=== PATIENT | female | born 1970 | race Caucasian/White ===

== ENCOUNTER → 2023-11-04 09:56 | Outpatient (AMB) | payer OTHER, SELFPAY ==
[2023-11-04 10:06] VITALS: BP 118/74; PULSE 77; O2SAT 99; BMI 34.2
--- NOTE | 2023-11-04 10:06 | A.OFFPC_ITS ---
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 Intake Note: Pt is here to est care Allergies carbamazepine [From TEGRETOL] Allergy (Unknown, Unverified 11/04/23 10:25) RASH tetracycline [TETRACYCLINE] Allergy (Unknown, Unverified 11/04/23 10:25) HAIR LOSS Medication List - Last Reconciled 11/04/23 by AJ Bose lamotrigine 400 mg PO DAILY zonisamide 100 mg PO DAILY Tobacco use date assessed: 11/04/23 Dental Screening Dental Screen Date: 11/04/23 Did you have a dental visit in the last 12 months?: No Did you have a dental problem in the last 6 months where you did not have access to dental care?: No Was dental information given to patient?: No HPI HPI Comments History of Present Illness Details Patient is a 53-year-old female here to establish care. She moved up to [place] from [place]. She has a past medical history significant for epilepsy, her last seizure was in 2021. She needs a neurologist, will refer. S he is due for mammogram and colonoscopy, will refer. She needs a refill on her seizure medication. Patient also states she would like to see a therapist, as her mother a couple months ago and she is still experiencing grief. Denies SI HI. Will connect patient with in office community mental health liaison to assist with finding therapist. She does not want the flu or COVID booster this year. 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 1. Little interest or pleasure in doing things: several days 2. Feeling down, depressed, or hopeless: more than half the days 3. Trouble falling or staying asleep, or sleeping too much: more than half the days 4. Feeling tired or having little energy: more than half the days 5. Poor appetite or overeating: several days 6. Feeling bad about yourself - or that you are a failure or have let yourself or your family down: more than half the days 7. Trouble concentrating on things, such as reading the newspaper or watching television: several days 8. Moving or speaking so slowly that other people could have noticed. Or the opposite - being so fidgety or restless that you have been moving around a lot more than usual: not at all 9. Thoughts that you would be better off or of hurting yourself in some way: not at all Total score: 11 Depression Screening Interpretation: Positive Depression Screening Done: Yes 06282 - PHQ-9 Billing: Yes Source: Developed by Drs. Conor Miranda, Deepti Phillip, Arnold Baugh and colleagues, with an educational samreen from [employer]. Thrive Questionnaire Date Thrive assessed: 11/04/23 I am a: Patient What is your living situation today?: I have a steady place to live Within the past 12 months, did the food you bought not last and you didn't have the money to get more?: Never true Within the past 12 months, did you worry whether your food would run out before you got money to buy more?: Never true Do you have trouble paying for medicines?: Yes Do you have trouble getting transportation to medical appointments?: No Do you have trouble paying your heating and electricity bill?: No Do you have trouble taking care of your child, family member or friend?: No Do you have trouble with day-to-day activities such as bathing, preparing meals, shopping, managing finances, etc.?: Yes Are you currently unemployed and looking for a job?: No Are you interested in more education?: Yes THRIVE Score: 0 AUDIT C Alcohol Use Questionnaire (AUDIT-C) 1. How often do you have a drink containing alcohol?: 2-4 times a month 2. How many drinks containing alcohol do you have on a typical day when you are drinking?: 1 or 2 3. How often do you have six or more drinks on one occasion?: Never Total Score: 2 PAIGE-7 AMB Questionnaire PAIGE-7 Date PAIGE - 7 assessed: 11/04/23 Feeling nervous, anxious, or on edge: 2 = More than half the days Not being able to stop or control worryin = More than half the days Worrying too much about different things: 2 = More than half the days Trouble relaxin = More than half the days Being so restless that it is hard to sit still: 2 = More than half the days Becoming easily annoyed or irritable: 1 = Several days Feeling afraid as if something awful might happen: 1 = Several days Total PAIGE-7 score (0-4 normal; 5-9 mild; 10-14 moderate; 15-21 severe): 12 Source: Developed by Drs. Conor Miranda, Deepti Phillip, Arnold Baugh and colleagues, with an educational samreen from [employer]. PAIGE-7 Assessment Billing PAIGE-7 Assessment Tool: PAIGE-7 Assessment 95777 Review of Systems Const Details: Constitutional : No Weight loss, No Fever, No Chills, No Fatigue, No Malaise Eyes: No Eye Pain, No Swelling, No Redness Cardiovascular : No Chest Pain, No SOB, No Dyspnea on Exertion, No Orthopnea, No Edema, No Palpitations Respiratory : No Cough, No Sputum, No Wheezing Gastrointestinal : No Nausea, No Vomiting, No Diarrhea, No Constipation, No abdominal Pain, No Hematochezia, No Melena Genitourinary : No Dysuria, No Urinary Frequency, No Hematuria, Musculoskeletal : No joint pain, No Myalgias, No Joint Swelling Skin : No Skin Lesions, No rash Neuro : No Weakness, No Numbness, No Dizziness, No Headache Psych : Admits Anxiety/Panic, Admits Depression. Denies SI/HI. Heme/Lymph: No Bruising, No Bleeding,No Lymphadenopathy Endocrine : No Polyuria, No Polydipsia All other systems reviewed and are negative Physical exam (Primary Care) Vital Signs: Last Vital Signs Pulse 77 11/04/23 10:06 BP 118/74 11/04/23 10:06 Pulse Ox 99 11/04/23 10:06 Oxygen Delivery Method Room Air 11/04/23 10:06 Care Plan Goal for BP management: Vital signs reviewed stable. BMI result Body Mass Index 34.2 Tobacco/Smoking Status: Tobacco use Status Tobacco use date assessed 11/04/23 11/04/23 10:14 Patient Tobacco Use Status Former Tobacco user 11/04/23 10:14 e-Cigarette/Vaping Use Never Used 11/04/23 10:14 PHQ-9: PHQ-9 Score PHQ-9: Total score 11 11/04/23 11:26 Depression Screening Interpretation: Positive Thrive Assessment: Date of Thrive Assessment Date Thrive assessed 11/04/23 11/04/23 10:26 Const Other: Appearance: Alert.? Oriented X3.? No acute distress.? Eyes: Pupils equal, round and reactive to light.? Neck: Normal inspection.? Neck supple.?Full ROM CVS: Normal heart rate and rhythm.? Pulses normal.? Respiratory: No respiratory distress.? Breath sounds normal.? Skin: Skin warm and dry.? Normal skin color.? Normal skin turgor.? Extremities: + left shoulder crepitus with active ROM. Neuro: Oriented X 3.? No motor deficit.? No sensory deficit. CN 2-12 intact Results Reviewed Results Reviewed: Will call patient with lab results Assessment and Plan Assessment & Plan (1) Epilepsy: Comment: Patient will get referral to neurologist. Patient will get refill of medication. Confirmed dose with pharmacy. Code(s): G40.909 - Epilepsy, unspecified, not intractable, without status epilepticus Qualifiers: Epilepsy type: unspecified Intractability: not intractable Status epilepticus: without status epilepticus Qualified Code(s): G40.909 - Epilepsy, unspecified, not intractable, without status epilepticus (2) Depression with anxiety: Comment: Patient is meeting today with in office mental health liaison, to connect patient with a therapist. 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 States that she sometimes gets discomfort in her left shoulder. Physical exam demonstrated some crepitus on full range of motion exercises. Will obtain X-ray. Code(s): M25.512 - Pain in left shoulder Qualifiers: Chronicity: unspecified Qualified Code(s): M25.512 - Pain in left shoulder Plan: Take your medications as prescribed. If you were prescribed antibiotics today, it is important that you take your medication to their entirety, do not skip any doses, do not finish them early. Follow-up with your primary care provider this week. Return to the emergency department with new or worsening symptoms. Such as fevers, chills, chest pain, shortness of breath, nausea, vomiting, dizziness, headache, vision changes, lethargy In case of emergency call 911 Plan Patient will follow-up for full physical exam in 3-4 months. Patient declined OBGYN referral at this time Orders: Orders Complete Blood Count Auto Diff Today Z13.0 - Encounter for screening for diseases of the blood and blood-forming organs and certain disorders involving the immune mechanism Vitamin D 25-OH (D2 and D3) Today Z13.21 - Encounter for screening for nutritional disorder Vitamin B12 Today Z13.21 - Encounter for screening for nutritional disorder UA CC w/rflx Micro + Cult Today Z13.89 - Encounter for screening for other disorder MM tomosynthesis screening BI Today Z12.31 - Encounter for screening mammogram for malignant neoplasm of breast XR shoulder LT min 2V Today M25.512 - Pain in left shoulder Comprehensive Met. Panel Today Z91.89 - Other specified personal risk factors, not elsewhere classified Lipid Panel Today Z13.220 - Encounter for screening for lipoid disorders Vitamin B6 Today Z13.21 - Encounter for screening for nutritional disorder TSH reflex Free T4 Today Z13.29 - Encounter for screening for other suspected endocrine disorder Referrals Neurology Referral G40.909 - Epilepsy, unspecified, not intractable, without status epilepticus Gastroenterology Referral Z12.11 - Encounter for screening for malignant neoplasm of colon Medications: New zonisamide 50 mg (2 x 25 mg) PO BID 90 caps 0RF fluticasone propionate 50 mcg/actuation administer into each nostril 2 sprays intranasal DAILY 16 grams 0RF lamotrigine 200 mg PO BID 90 tabs 0RF Discontinued lamotrigine Discontinued Reason: More recent result 200 mg PO BID Review Flu Vaccine not done: patient reason (Declined) Coding Level of Care Code New Pt Level 4 (06675) Diagnoses Nonintractable epilepsy without status epilepticus, unspecified epilepsy type G40.909 Epilepsy type: unspecified Intractability: not intractable Status epilepticus: without status epilepticus Depression with anxiety F41.8 Left shoulder pain, unspecified chronicity M25.512 Chronicity: unspecified Additional Codes PAIGE-7 Assessment Billing - PAIGE-7 Assessment Tool: PAIGE-7 Assessment 50441 ([id number])
== END ==
PROVIDERS: PCP Internal Medicine; Visit Provider Nurse Practitioner Primary Care
DX: G40.909 Epilepsy, unspecified, not intractable, without status epilepticus (principal); F41.8 Other specified anxiety disorders; M25.512 Pain in left shoulder
CPT/HCPCS: 96127; 99204

== ENCOUNTER 2024-01-23 14:22 | Outpatient (AMB) | payer OTHER, SELFPAY ==
[2024-01-23 14:24] VITALS: BP 118/66; PULSE 90; TEMP 36.6; O2SAT 97; BMI 36.5
--- NOTE | 2024-01-23 14:24 | AM.OFFWIN_ITS ---
Intake Vital Signs 01/23/24 14:24 Height 5 ft 1 in Weight 193 lb 4 oz BMI 36.5 BP 118/66 Blood Pressure Location Lt brachial Position Sitting Pulse 90 Pulse Source Pulse Oximeter Temp 97.9 F Temp Source Oral Pulse Oximetry (%) 97 Oxygen Delivery Method Room Air Intake Visit Reasons: EP Headache, Cough Intake Note: Pt presents to the office today for c/o headache, cough, and fatigue that started the beginning of the week. Patient Tobacco Use Status: Former Tobacco user Allergies carbamazepine [From TEGRETOL] Allergy (Unknown, Unverified 01/23/24 14:24) RASH tetracycline [TETRACYCLINE] Allergy (Unknown, Unverified 01/23/24 14:24) HAIR LOSS HPI EP Headache, Cough HPI Details 53 year old female patient presents toda y with a 4 day history of headache, cough, fatigue, nasal congestion. Has had some morning upper respiratory congestion and wheezing at times. Denies fever. Has had to miss work. Denies any GI symptoms. 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 Current occupational exposures/hazards: No Cognitive needs: No Hearing needs: No Vision needs: No Review of Systems Const All systems reviewed & are unremarkable except as noted in HPI and below Physical Exam Vital Signs: Last Vital Signs Temp 97.9 F 01/23/24 14:24 Pulse 90 01/23/24 14:24 BP 118/66 01/23/24 14:24 Pulse Ox 97 01/23/24 14:24 Oxygen Delivery Method Room Air 01/23/24 14:24 BMI result Body Mass Index 36.5 Const General: cooperative and ill appearing acutely HEENT Head: Yes normal to inspection Ears: hearing grossly normal bilaterally General nose exam: Normal external nose present and Nasal discharge present mucoid Face and sinus: Yes normal facial exam Throat: Yes posterior oropharynx normal Neck Neck: Yes no lymphadenopathy Resp Effort & Inspection: normal respiratory effort and Actively coughing Quality: productive Auscultation: wheezes upper bilaterally Cardio Jugular venous distension: no JVD Rate: regular rate Rhythm: regular rhythm Skin General skin exam: no rashes or lesions noted Extrem General: Yes no clubbing, cyanosis or edema Psych Appearance: grossly normal Mental Status: mental status grossly normal Speech and movement: Normal speech and movement present Assessment & Plan Assessment & Plan (1) Upper respiratory tract infection: Code(s): J06.9 - Acute upper respiratory infection, unspecified Qualifiers: URI type: unspecified viral URI Qualified Code(s): J06.9 - Acute upper respiratory infection, unspecified Plan: Symptoms consistent with viral URI. Covid/flu/RSV swab obtained. We discussed conservative measures for symptom management, including rest, hydration healthy food/vitamin intake, otc cold/flu products as needed. I am going to prescribe her an albuterol inhaler as she is having some mild wheezing at this time, and has had reported shortness of breath/wheezing at home. Work note provided, and patient will return to the clinic as needed if she does not improve with time and conservative measures, or certainly if symptoms worsen. She agrees to plan. Orders: Orders SARS-CoV2/FLU/RSV Today J06.9 - Acute upper respiratory infection, unspecified Medications: New albuterol sulfate 90 mcg/actuation 1 inh inhalation QID PRN 6.7 grams 0RF shortness of breath or wheezing J06.9 - Acute upper respiratory infection, unspecified Coding Level of Care Code Est Pt Level 4 (51650) Diagnoses Viral upper respiratory tract infection J06.9 URI type: unspecified viral URI
== END 2024-01-23 14:58 | disposition home or self-care (01) ==
PROVIDERS: PCP Nurse Practitioner Primary Care; Visit Provider Nurse Practitioner Family
DX: J06.9 Acute upper respiratory infection, unspecified (principal)
CPT/HCPCS: 99214

== ENCOUNTER 2024-01-23 14:53 | Outpatient (REF) | payer OTHER, SELFPAY ==
[2024-01-23 17:49] LABS: Influenza A PCR NEGATIVE (Negative); Influenza B PCR NEGATIVE (Negative); Resp Syncy Virus RNA Qual PCR NEGATIVE (Negative); SARS COV2 PCR INHOUSE NEGATIVE (Negative)
== END 2024-01-23 14:54 | disposition home or self-care (01) ==
LOC: HO.LAB 14:53
PROVIDERS: Visit Provider Nurse Practitioner Family
DX: J06.9 Acute upper respiratory infection, unspecified (principal)
CPT/HCPCS: 0241U

== ENCOUNTER 2024-01-27 08:04 | Outpatient (AMB) | payer OTHER, SELFPAY ==
[2024-01-27 08:05] VITALS: BP 104/70; PULSE 75; O2SAT 98; BMI 36.1
--- NOTE | 2024-01-27 08:05 | MHC.PC.OV ---
Vital Signs 01/27/24 08:05 Height 5 ft 1 in Weight 191 lb BMI 36.1 BP 104/70 Blood Pressure Location Rt brachial Position Sitting Pulse 75 Pulse Source Pulse Oximeter Pulse Oximetry (%) 98 Oxygen Delivery Method Room Air Intake Visit Reasons: Annual PE Intake Note: Pt is here today for her PE: last papsmear 4yrs ago, mammogram 4 yrs ago and never had a colonoscopy Allergies carbamazepine [From TEGRETOL] Allergy (Unknown, Unverified 01/27/24 08:07) RASH tetracycline [TETRACYCLINE] Allergy (Unknown, Unverified 01/27/24 08:07) HAIR LOSS Tobacco use date assessed: 01/27/24 Dental Screening Dental Screen Date: 01/27/24 Did you have a dental visit in the last 12 months?: No Was dental information given to patient?: No HPI HPI Comments History of Present Illness Details Patient is a 53-year-old female here for physical exam. Patient has a past medical history significant for epilepsy, and anxiety. Patient is due for colonoscopy, has referral and patient states she will call and make appointment. Patient is due for mammogram, will refer. Patient is due for Pap smear, will refer. Patient is due for tetanus booster shot, patient will obtain from pharmacy. Patient has referral out for therapy, she will follow-up with that. Denies SI/HI. Patient has appointment with Neurology in 2 months for epilepsy. Patient is currently being controlled with limotrigine. 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 40298 - PHQ-9 Billing: Patient declined-do not bill Source: Developed by Drs. Conor Miranda, Deepti Phillip, Arnold Baugh and colleagues, with an educational samreen from [employer]. Thrive Questionnaire Date Thrive assessed: 11/04/23 PAIGE-7 AMB Questionnaire PAIGE-7 Date PAIGE - 7 assessed: 11/04/23 Source: Developed by Drs. Conor Miranda, Deepti Phillip, Arnold Baugh and colleagues, with an educational samreen from [employer]. PAIGE-7 Assessment Billing PAIGE-7 Assessment Tool: pt declined-do not bill Review of Systems Const Details: Constitutional : No Weight loss, No Fever, No Chills, No Fatigue, No Malaise ENT/Mouth : No sore throat, No Rhinorrhea Eyes: No Eye Pain, No Swelling, No Redness, No vision change. Cardiovascular : No Chest Pain, No SOB, No Dyspnea on Exertion, No Orthopnea, No Edema, No Palpitations Respiratory : No Cough, No Sputum, No Wheezing Gastrointestinal : No Nausea, No Vomiting, No Diarrhea, No Constipation, No abdominal Pain, No Hematochezia, No Melena Genitourinary : No Dysuria, No Urinary Frequency, No Hematuria, Musculoskeletal : No joint pain, No Myalgias, No Joint Swelling Skin : No Skin Lesions, No rash Neuro : No Weakness, No Numbness, No Dizziness, No Headache Psych : Admits some Anxiety/Panic, No Depression Heme/Lymph: No Bruising, No Bleeding,No Lymphadenopathy Endocrine : No Polyuria, No Polydipsia All other systems reviewed and are negative Physical exam (Primary Care) Vital Signs: Last Vital Signs Pulse 75 01/27/24 08:05 BP 104/70 01/27/24 08:05 Pulse Ox 98 01/27/24 08:05 Oxygen Delivery Method Room Air 01/27/24 08:05 Care Plan Goal for BP management: Vital signs reviewed stable. BMI result Body Mass Index 36.1 Tobacco/Smoking Status: Tobacco use Status Tobacco use date assessed 01/27/24 01/27/24 08:08 Patient Tobacco Use Status Former Tobacco user 01/27/24 08:08 e-Cigarette/Vaping Use Never Used 01/27/24 08:08 Thrive Assessment: Date of Thrive Assessment Date Thrive assessed 11/04/23 01/27/24 08:08 Const Other: Appearance: Alert.? Oriented X3.? No acute distress.? Head: Normocephalic, atraumatic. Eyes: Pupils equal, round and reactive to light.? ENT: Pharynx normal.?Septum Midline. TM intact and pearly shine. Neck: Normal inspection.? Neck supple.?Full ROM. CVS: Normal heart rate and rhythm.? Pulses normal.? Respiratory: No respiratory distress.? Breath sounds normal.? Abdomen: Soft and nontender.? Skin: Skin warm and dry.? Normal skin color.? Normal skin turgor.? Extremities: No lower extremity edema.? No calf ttp. 5/5 strength to bilateral upper and lower extremities Back: No midline tenderness, no C-spine tenderness, full range of motion, no CVA tenderness bilaterally Neuro: Oriented X 3.? No motor deficit.? No sensory deficit. CN 2-12 intact Assessment and Plan Assessment & Plan (1) Encounter for routine adult physical exam with abnormal findings: Comment: Patient is due for fasting labs. Patient has referral for mammogram, colonoscopy, OBGYN. Patient will get tetanus booster. Patient will also get shingles vaccine. Code(s): Z00.01 - Encounter for general adult medical examination with abnormal findings (2) Depression with anxiety: Comment: Patient has referral in for therapist. Patient has not met with mental health provider at this time. Patient will call to make appointment Code(s): F41.8 - Other specified anxiety disorders (3) Epilepsy: Comment: Patient will get referral to neurologist. Patient will get refill of medication. Confirmed dose with pharmacy. Code(s): G40.909 - Epilepsy, unspecified, not intractable, without status epilepticus Qualifiers: Epilepsy type: unspecified Intractability: not intractable Status epilepticus: without status epilepticus Qualified Code(s): G40.909 - Epilepsy, unspecified, not intractable, without status epilepticus Plan: Take your medications as prescribed. If you were prescribed antibiotics today, it is important that you take your medication to their entirety, do not skip any doses, do not finish them early. Follow-up with your primary care provider this week. Return to the emergency department with new or worsening symptoms. Such as fevers, chills, chest pain, shortness of breath, nausea, vomiting, dizziness, headache, vision changes, lethargy In case of emergency call 911 Plan Follow-up in 3 months. Orders: Referrals DIRECTOR OF CURRICULUM Referral Z12.4 - Encounter for screening for malignant neoplasm of cervix Coding Level of Care Code Est Pt Prev Care 40-64y(77622) Diagnoses Encounter for routine adult physical exam with abnormal findings Z00.01 Depression with anxiety F41.8 Nonintractable epilepsy without status epilepticus, unspecified epilepsy type G40.909 Epilepsy type: unspecified Intractability: not intractable Status epilepticus: without status epilepticus Time Spent (min) 25
== END 2024-01-27 11:11 | disposition home or self-care (01) ==
PROVIDERS: PCP Nurse Practitioner Primary Care; Visit Provider Nurse Practitioner Primary Care
DX: Z00.00 Encounter for general adult medical examination without abnormal findings (principal); F41.8 Other specified anxiety disorders; G40.909 Epilepsy, unspecified, not intractable, without status epilepticus
CPT/HCPCS: 99396

== ENCOUNTER 2024-03-02 12:56 | Outpatient (AMB) | payer OTHER, SELFPAY ==
[2024-03-02 12:59] VITALS: BP 110/52; BMI 35.5
--- NOTE | 2024-03-02 12:59 | A.OFFVIS_ITS ---
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 Required: No Information Interpreted: non-clinical & clinical Audit Reviewer: Audit Reviewer Present (Aida) Allergies carbamazepine [From TEGRETOL] Allergy (Unknown, Verified 03/02/24 13:00) RASH tetracycline [TETRACYCLINE] Allergy (Unknown, Verified 03/02/24 13:00) HAIR LOSS Medication List - Last Reconciled 03/02/24 by Macey Gauthier CNM albuterol sulfate 90 mcg/actuation 1 inh inhalation QID PRN fluticasone propionate 50 mcg/actuation 2 sprays intranasal DAILY lamotrigine 200 mg PO BID zonisamide 50 mg (2 x 25 mg) PO BID Is last menstrual period known: No Post menopausal: Yes Patient : No HPI HPI 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 She is postmenopausal for about the last 3 years she has not having problems with it she has not been sexually active with a several years but is interested during the discussion getting tested STIs just to be sure she had partner who had something but she was not exactly sure what he had and even though they were full she would like to check. She had her tubes tied she delivered 2 children here at [facility] many years ago with Dr. De La Garza and then moved to [place] for few years and now is back. She does get seizures but she manages with medication that she takes and also being careful about sleep, and different light in visual conditions, and other triggers PFSH Surgical History History of bunionectomy Hx of tubal ligation Family History Mother Substance use disorder Sister Substance use disorder Maternal Grandfather Colon cancer Father FH: kidney cancer Social History (Updated 03/02/24 @ 13:02 by JAKE Ny) Housing: Condominium Alcohol intake: current Alcohol intake frequency: holidays/special occasions only Patient Tobacco Use Status: Former Tobacco user e-Cigarette/Vaping Use: Never Used Second Hand Smoke Exposure: No service: No Current occupational status: employed 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 Current occupational exposures/hazards: No Cognitive needs: No Hearing needs: No Vision needs: Yes Female Reproductive History Menstrual Age of Menarche: 15 control method: other (tubal ligation) Total pregnancies: 3 Full term: 2 Number of Living Children: 2 Ab spontaneous: 1 Date of last pap smear: 09/12/10 (negative) History of abnormal pap smear: Yes (1998 1997 KIMBERLY 1) Physical Exam Vital Signs: Last Vital Signs BP 110/52 L 03/02/24 12:59 BMI result Body Mass Index 35.5 Const General: healthy appearing, comfortable, no acute distress, well developed and alert Nutritional Appearance: average body habitus Orientation/consciousness: patient oriented x3 Limitations: no limitations HEENT Head: Yes normocephalic Neck Neck: Yes normal visual inspection Chest Chest palpation & inspection: normal inspection of the chest Breast/axilla inspection: normal inspection of the breasts and normal inspection of the axillae Breast/axilla palpation: normal palpation of the breasts and normal palpation of the axillae Resp Effort & Inspection: normal respiratory effort GI Inspection: Yes normal to inspection, No Abdominal wall edema and No distended Palpation (GI): Soft to palpation and nontender Other: External exam within normal limits vagina is pink and moist cervix multiparous slightly stenotic closed patient sensitive with the Pap scraping nonfriable hoping close a normal appearing healthy mucous. General: Yes bladder normal to palpation External Female Exam: normal external appearance and normal appearance of the urethra Speculum Exam - Vagina: normal appearance of the vagina, normal palpation and normal vaginal discharge Speculum Exam - Cervix: normal appearance of the cervix, normal palpation and nontender Bimanual exam- vagina & uterus: normal bimanual exam, normal palpation, uterine size normal, bladder normal to palpation, consistency normal, normal palpation, uterine mobility normal, uterine shape normal, No Cervical tenderness present, non-tender and no cervical motion tenderness Bimanual Exam- Adnexa, other: normal adnexae, no masses, normal and No adnexal tenderness Neuro General: patient oriented x3 Assessment & Plan Assessment & Plan (1) Cervical cancer screening: Code(s): Z12.4 - Encounter for screening for malignant neoplasm of cervix Category: Medical (2) Breast cancer screening: Code(s): Z12.39 - Encounter for other screening for malignant neoplasm of breast Category: Medical (3) Encounter for screening examination for sexually transmitted disease: Code(s): Z11.3 - Encounter for screening for infections with a predominantly sexual mode of transmission Category: Medical (4) Well woman exam with routine gynecological exam: Code(s): Z01.419 - Encounter for gynecological examination (general) (routine) without abnormal findings Category: Medical Plan -----Discussed in this visit the following: healthy balanced diet, regular and consistent exercise, getting recommended health screens, doing the best she can for her particular health concerns, kegel exercises, pap smear screening and followup recommendations, mammography screening and SBE, normal changes in cycles in her life stage--- . Discussed her self-care terms of her management of prevention of seizures to 1 every several years Discussed self-care set up mechanic heading machines shrestha. Also discussed offer ins for STI screening offered and explained the usual screens for HIV hepatitis surface antigen hepatitis C and syphilis. Also discussed if she was concerned as to whether not she had ever been exposed to hepatitis-B or in fact if she had been vaccinated doing hepatitis-B panel would might be useful also discussed the usual screening for herpes which is only done if there is suspicion of the lesion. However if curious if she had ever exposed, to the herpes virus blood tests might tell her that but it wo.ould not tell her if it was was sexual contact or cold so and what decade either. She is curious about all these but is going to check into the cost with company and may declines some of the tests when she goes to get lab done she be doing all of it together with her primary care fasting work soon. She is on portal those having trouble gaining access and she will be calling a number help with that she will be scheduling her mammogram soon and she has a colonoscopy coming up. She also has a neurology visit to Orders: Orders CT NG by PCR Today Z11.3 - Encounter for screening for infections with a predominantly sexual mode of transmission Pap Smear Today Z12.4 - Encounter for screening for malignant neoplasm of cervix Hepatitis B Surface Antigen Today Z11.3 - Encounter for screening for infections with a predominantly sexual mode of transmission Herpes Simplex Virus Ab IgG Today Z11.3 - Encounter for screening for infections with a predominantly sexual mode of transmission Bacterial Vaginosis Panel Today Z11.3 - Encounter for screening for infections with a predominantly sexual mode of transmission Hepatitis C Antibody Today Z11.3 - Encounter for screening for infections with a predominantly sexual mode of transmission HIV Ab/Ag Today Z11.3 - Encounter for screening for infections with a predominantly sexual mode of transmission Syphilis Screen Today Z11.3 - Encounter for screening for infections with a predominantly sexual mode of transmission Hepatitis B Profile Today Z11.3 - Encounter for screening for infections with a predominantly sexual mode of transmission Coding Level of Care Code New Pt Prev Care 40-64y([id number]) Diagnoses Cervical cancer screening Z12.4 Breast cancer screening Z12.39 Encounter for screening examination for sexually transmitted disease Z11.3 Well woman exam with routine gynecological exam Z01.419
== END 2024-03-02 13:49 | disposition home or self-care (01) ==
PROVIDERS: PCP Nurse Practitioner Primary Care; Visit Provider Advanced Practice Midwife
DX: Z01.419 Encounter for gynecological examination (general) (routine) without abnormal findings (principal)
CPT/HCPCS: 99386

== ENCOUNTER 2024-03-02 12:56 | Outpatient (REF) | payer OTHER, SELFPAY ==
[2024-03-03 09:02] LABS: Bacterial Vaginosis PCR NEGATIVE (Negative); Candida Group PCR NOT DETECTED (Not Detect); Candida glab krusei PCR NOT DETECTED (Not Detect); Trichomonas vaginalis PCR NOT DETECTED (Not Detect)
[2024-03-03 10:25] LABS: CT PCR NOT DETECTED (Not Detect.); NG PCR NOT DETECTED (Not Detect.)
[2024-03-06 04:04] LABS: HPV mRNA E6/E7 rflx Not Detected (Not Detected)
== END 2024-03-02 12:57 | disposition home or self-care (01) ==
LOC: HO.LNP 12:56
PROVIDERS: PCP Nurse Practitioner Primary Care; Visit Provider Advanced Practice Midwife
DX: Z01.419 Encounter for gynecological examination (general) (routine) without abnormal findings (principal); Z11.3 Encounter for screening for infections with a predominantly sexual mode of transmission
CPT/HCPCS: 0352U; 0353U; 87624; 88142; 99386

== ENCOUNTER 2024-03-30 13:50 | Outpatient (REF) | payer OTHER, SELFPAY ==
[2024-04-01 10:00] LABS: H Pylori Breath Test Negative (Negative)
== END 2024-03-30 13:51 | disposition home or self-care (01) ==
LOC: HO.LNP 13:50
PROVIDERS: Visit Provider Nurse Practitioner Family
DX: K21.9 Gastro-esophageal reflux disease without esophagitis (principal)
CPT/HCPCS: 83013

== ENCOUNTER 2024-03-30 13:59 | Outpatient (AMB) | payer OTHER, SELFPAY ==
--- NOTE | 2024-03-30 14:02 | A.OFFVIS_ITS ---
Vital Signs 03/30/24 14:11 Height 5 ft 1 in Weight 189 lb 9.561 oz BMI 35.8 BP 112/62 Blood Pressure Location Rt brachial Position Sitting Pulse 84 Pulse Source Pulse Oximeter Pulse Oximetry (%) 97 Oxygen Delivery Method Room Air Intake Visit Reasons: Colonoscopy Screening Intake Note: Ave presents in office today for a scheduled colo s/p screening. CC; Pt reports no prior hx of colo scrn. Pt reports family hx of colo cancer (grandfather). Pt reports that they are also concerned regarding a recent stomach virus that she had. Pt states that she had experienced constipation followed by melena. Pt reports that it was a moderate amount of blood mixed in with the stool. Pt reports that they also experienced some diffuse abdominal pain. Pt reports onset of sx 03/14/2024. Pt reports that the screening was originally scheduled by PCP based on age. Pt is also now concerned regarding sx. 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 female with past medical history of depression, anxiety, epilepsy diagnosed as a teenager is here today for pre colonoscopy screening.? Patient was sent to us by her PCP.? This is her first colonoscopy screening.? Patient reports epigastric pain and postprandial acid reflux. Patient reports feeling bloated. Patient admits of gaining weight in the past few months. Patient reports that she has been depressed as she just lost her mother not longer go. Patient is trying to get back to the gym to try to lose some weight. Patient is not on any PPI currently. Family history of CRC. Patient admits to been diagnosed with epilepsy when she was a teenager. Patient had been managed fairly well with lamotrigine and zonisamide. Patient denies having tonic clonic seizures, reports that usually they are absence seizures. Last seizure in 2021. Denies history of difficulty with sedation or anesthesia in the past.? Negative for history of sleep apnea.? Denies any history of cardiac, renal, pulmonary, or hepatic disease.?? No history of infectious? diseases like hepat itis A, B, C, HIV or tuberculosis.? 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 Current occupational exposures/hazards: No Cognitive needs: No Hearing needs: No Vision needs: Yes Female Reproductive History Menstrual Age of Menarche: 15 Review of Systems Const Denies weight gain and Denies weight loss ENT Reports no additional complaints, Denies dysphagia and Denies odynophagia Card Reports no additional complaints Resp Reports no additional complaints GI Reports abdominal pain (Epigastric), Denies belching, Denies melena, Reports bloating, Denies change in bowel habits, Reports constipation, Denies dysphagia, Denies excessive flatus, Denies dyspepsia, Reports heartburn, Denies diarrhea, Denies loose stools, Denies nausea, Denies odynophagia and Denies vomiting Reports no additional complaints Musc Reports no additional complaints Neuro Reports no additional complaints Psych Reports no additional complaints Endo Reports no additional complaints Physical Exam Vital Signs: Last Vital Signs Pulse 84 03/30/24 14:11 BP 112/62 03/30/24 14:11 Pulse Ox 97 03/30/24 14:11 Oxygen Delivery Method Room Air 03/30/24 14:11 BMI result Body Mass Index 35.8 Const General: healthy appearing and no acute distress Nutritional Appearance: obese Orientation/consciousness: patient oriented x3 Resp Effort & Inspection: normal respiratory effort, able to speak in complete sentences, no tracheal deviation and symmetric chest movement Auscultation: clear to auscultation bilaterally Cardio Rate: regular rate GI Inspection: Yes normal to inspection and No distended Palpation (GI): Soft to palpation, not firm, nontender and No hepatosplenomegaly present Auscultation: normal bowel sounds General: Yes no CVA tenderness Back/Spine/Pelvis Back: no CVA tenderness Skin General skin exam: elasticity normal, turgor normal and dry skin Neuro General: patient oriented x3 Psych Appearance: grossly normal Mental Status: mental status grossly normal Assessment & Plan Assessment & Plan (1) Screen for colon cancer: Code(s): Z12.11 - Encounter for screening for malignant neoplasm of colon (2) GERD (gastroesophageal reflux disease): Code(s): K21.9 - Gastro-esophageal reflux disease without esophagitis Qualifiers: Esophagitis presence: esophagitis presence not specified Qualified Code(s): K21.9 - Gastro-esophageal reflux disease without esophagitis (3) Postprandial abdominal bloating: Code(s): R14.0 - Abdominal distension (gaseous) Plan Patient denies any cardiac or respiratory symptoms.? Patient does admit that she has a history of epilepsy, last seizure in 2021. Patient reports that she takes her medications daily. Denies any issues with anesthesia in the past.? Denies any history of sleep apnea.? No history infectious diseases in the past or present.? Not on any anticoagulation therapy.? Family history of CRC. Patient reports that she has been having epigastric discomfort postprandially. Patient reports that it happens with almost every meal that she eats. Patient admits that this has been going on for sometimes. Will check for H pylori in the office today. Patient will start taking pantoprazole. Will treat empirically if positive. Patient will be sent for upper endoscopy to rule out esophagitis, gastritis, gastric or peptic ulcers, Balderas's.? Patient denies melena, hematochezia, unintentional weight loss or ribbon like stools.? Discussed at length the pre-procedure,? prep, diet & medications as well as what to expect prior, during and after the procedure.?? Stressed the importance of good bowel prep.? Recommended the use of Vaseline or Calmoseptine OTC & baby wipes with bowel movements to promote comfort.? ?Patient verbalizes understanding and agrees to plan of care.? She was given the opportunity to ask questions and all questions answered.? We will see her after the procedure.? Orders: Orders H Pylori Breath Test Today K21.9 - Gastro-esophageal reflux disease without esophagitis Lipase Today R10.9 - Unspecified abdominal pain Transglutaminase IgA Today R10.9 - Unspecified abdominal pain Transglutaminase Ab IgG Today R10.9 - Unspecified abdominal pain Medications: New bisacodyl (Dulcolax (bisacodyl)) Start taking 2 tablet every night 7 days before the procedure and 1 day before procedure take 4 tablets at noon time followed by MiraLax prep 10 mg (2 x 5 mg) PO BEDTIME 16 tabs 0RF Z12.11 - Encounter for screening for malignant neoplasm of colon polyethylene glycol 3350 (Miralax) As directed by gastroenterology department at [facility] 238 grams PO ONCE 238 grams 0RF Z12.11 - Encounter for screening for malignant neoplasm of colon pantoprazole 20 mg PO DAILY 90 tabs 1RF Coding Level of Care Code New Pt Level 4 ([id number]) Diagnoses Screen for colon cancer Z12.11 Gastroesophageal reflux disease, unspecified whether esophagitis present K21.9 Esophagitis presence: esophagitis presence not specified Postprandial abdominal bloating R14.0 Time Spent (min) 45 Comment 30 minutes spent with patient and additional 15 minutes spent reviewing her records
[2024-03-30 14:11] VITALS: BP 112/62; PULSE 84; O2SAT 97; BMI 35.8
== END 2024-03-30 15:11 | disposition home or self-care (01) ==
PROVIDERS: PCP Nurse Practitioner Primary Care; Visit Provider Nurse Practitioner Family
DX: Z12.11 Encounter for screening for malignant neoplasm of colon (principal); K21.9 Gastro-esophageal reflux disease without esophagitis; R14.0 Abdominal distension (gaseous); Z01.818 Encounter for other preprocedural examination
CPT/HCPCS: 99204

== ENCOUNTER → 2024-03-30 13:59 | Outpatient (BNVA) | payer OTHER, SELFPAY | PROVIDERS: PCP Nurse Practitioner Primary Care; Visit Provider Nurse Practitioner Family | DX: Z12.11 Encounter for screening for malignant neoplasm of colon (principal); K21.9 Gastro-esophageal reflux disease without esophagitis; R14.0 Abdominal distension (gaseous) | CPT/HCPCS: 99202 ==

== ENCOUNTER 2024-08-12 10:49 | Outpatient (REF) | payer OTHER, SELFPAY ==
[2024-08-12 13:08] LABS: MANUAL DIFF FLAG NO
[2024-08-12 13:13] LABS: Appearance Urine Clear; Color Urine Yellow; Glucose Urine UA Negative (Negative); Leukocyte Esterase Urine Small (1+) (Negative); Nitrite Urine Negative (Negative); UMIC TRIGGER UACC YES; Urine Blood Negative (Negative); Urine Ketones Negative (Negative); Urine Protein Negative (Neg-Trace)
[2024-08-12 13:19] LABS: Bacteria Urine 2+ (None Seen); Hyaline Casts Urine 0-2 /LPF (0-2); RBC Urine 0-2 /HPF (0-2); UACC Culture Trigger YES
[2024-08-12 13:23] LABS: Basophils Percent Auto 0.7 % (0-2); Eosinophils Absolute Auto 0.2 X10*3/uL (0.0-0.4); Eosinophils Percent Auto 4.1 % (0-4); Hematocrit 43.5 % (37.0-47.0); Hemoglobin 14.4 g/dl (12.0-16.0); Imm Gran Abs Auto 0.02 X10*3/uL (0.00-0.03); Imm Gran Pct Auto 0.4 % (0.0-0.4); Lymphocytes Absolute Auto 1.7 X10*3/uL (1.2-4.9); Lymphocytes Percent Auto 30.8 % (20-40); Mean Corpuscular HGB Conc 33.1 g/dl (31.0-35.0); Mean Corpuscular Hemoglobin 29.1 pg (27.0-33.0); Mean Corpuscular Volume 88.1 fL (80.0-98.0); Mean Platelet Volume 9.4 fL (9.4-12.3); Monocytes Absolute Auto 0.4 X10*3/uL (0.1-1.2); Monocytes Percent Auto 7.9 % (2-11); Neutrophils Percent Auto 56.1 % (45-73); Platelet Count 289 X10*3/uL (160-400); Red Blood Count 4.94 X10*6/uL (4.20-5.50); Red Cell Distribution Width 12.8 % (11.0-16.0); White Blood Count 5.4 X10*3/uL (4.8-10.8)
[2024-08-12 13:53] LABS: Alanine Aminotransferase 44 U/L (0-31); Albumin Level 4.1 g/dL (3.5-5.0); Alkaline Phosphatase 117 U/L (39-117); Anion Gap 16 (12-20); Aspartate Amino Transferase 36 U/L (5-31); Bilirubin Total 0.7 mg/dL (0.0-1.0); Blood Urea Nitrogen 9 mg/dL (9-16); Calcium 9.2 mg/dL (8.4-10.2); Carbon Dioxide 21 mmol/L (22-29); Chloride 109 mmol/L (96-108); Cholesterol 201 mg/dL (<200); Estimated Glomerular Filt Rate > 60; Glucose Random 96 mg/dL (60-115); HDL Cholesterol 42 mg/dL (>40); LDL Cholesterol Calculated 140 mg/dL (<100); Potassium 3.8 mmol/L (3.3-5.1); Sodium 142 mmol/L (135-145); Triglycerides 96 mg/dL (<150)
[2024-08-12 13:54] LABS: Vitamin B12 487 pg/mL (200-900)
[2024-08-16 16:08] LABS: Vitamin D 25-OH, D2 <4 ng/mL; Vitamin D 25-OH, D3 19 ng/mL; Vitamin D 25-OH, Total 19 ng/mL (30-100)
[2024-08-17 05:58] LABS: Vitamin B6 4.1 ng/mL (2.1-21.7)
== END 2024-08-12 10:50 | disposition home or self-care (01) ==
LOC: HO.HMGCLDS 10:49
PROVIDERS: PCP Internal Medicine; Visit Provider Internal Medicine
DX: Z13.0 Encounter for screening for diseases of the blood and blood-forming organs and certain disorders involving the immune mechanism (principal); Z13.21 Encounter for screening for nutritional disorder; Z91.89 Other specified personal risk factors, not elsewhere classified; Z13.220 Encounter for screening for lipoid disorders; Z13.29 Encounter for screening for other suspected endocrine disorder
CPT/HCPCS: 36415; 80053; 80061; 81001; 82306; 82607; 84207; 84443; 85025; 87086

== ENCOUNTER 2024-08-19 13:56 | Outpatient (AMB) | payer OTHER, SELFPAY ==
[2024-08-19 14:06] VITALS: BP 112/70; PULSE 91; O2SAT 97; BMI 36.7
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
== END 2024-08-19 14:41 | disposition home or self-care (01) ==
LOC: HO.HMCC 13:57
PROVIDERS: PCP Nurse Practitioner Primary Care; Visit Provider Internal Medicine
DX: R05.3 Chronic cough (principal); G40.909 Epilepsy, unspecified, not intractable, without status epilepticus; E66.812 Obesity, class 2; Z68.36 Body mass index [BMI] 36.0-36.9, adult; Z76.89 Persons encountering health services in other specified circumstances; Z91.09 Other allergy status, other than to drugs and biological substances; R30.0 Dysuria; R09.82 Postnasal drip; R09.81 Nasal congestion; Z91.018 Allergy to other foods; E55.9 Vitamin D deficiency, unspecified

== ENCOUNTER → 2024-08-19 13:56 | Outpatient (BNVA) | payer OTHER, SELFPAY | PROVIDERS: PCP Nurse Practitioner Primary Care; Visit Provider Internal Medicine | DX: R05.3 Chronic cough (principal); R30.0 Dysuria; R09.82 Postnasal drip; R09.81 Nasal congestion; R79.89 Other specified abnormal findings of blood chemistry; E55.9 Vitamin D deficiency, unspecified; G40.909 Epilepsy, unspecified, not intractable, without status epilepticus; E66.812 Obesity, class 2; Z68.36 Body mass index [BMI] 36.0-36.9, adult; Z76.89 Persons encountering health services in other specified circumstances; Z91.09 Other allergy status, other than to drugs and biological substances; Z91.018 Allergy to other foods; Z71.3 Dietary counseling and surveillance | CPT/HCPCS: 96127; 99212 ==

== ENCOUNTER 2024-09-14 09:35 | Outpatient (REF) | payer OTHER, SELFPAY ==
[2024-09-14 17:46] LABS: Influenza A PCR NEGATIVE (Negative); Influenza B PCR NEGATIVE (Negative); Resp Syncy Virus RNA Qual PCR NEGATIVE (Negative); SARS COV2 PCR INHOUSE NEGATIVE (Negative)
== END 2024-09-14 09:36 | disposition home or self-care (01) ==
LOC: HO.LAB 09:35
PROVIDERS: Visit Provider Physician Assistant
DX: N39.0 Urinary tract infection, site not specified (principal); J01.11 Acute recurrent frontal sinusitis; R05.3 Chronic cough; K08.89 Other specified disorders of teeth and supporting structures; R35.89 Other polyuria
CPT/HCPCS: 0241U; 81003; 87086; 99212

== ENCOUNTER 2024-09-14 09:35 | Outpatient (AMB) | payer OTHER, SELFPAY ==
--- NOTE | 2024-09-14 10:35 | AM.OFFWIN_ITS ---
Intake Vital Signs 09/14/24 10:38 Height 5 ft 1 in Weight 196 lb BMI 37.0 BP 132/80 Blood Pressure Location Lt brachial Position Sitting Pulse 85 Pulse Source Pulse Oximeter Temp 99 F Temp Source Oral Pulse Oximetry (%) 98 Oxygen Delivery Method Room Air Intake Visit Reasons: EP fever, chest, cold, congested Intake Note: Patient here for cough, laryngitis, sinus pressure, chest congestion, low grade fevers, headaches which all started on . Patient Tobacco Use Status: Former Tobacco user Allergies carbamazepine [From TEGRETOL] Allergy (Unknown, Verified 09/14/24 10:44) RASH tetracycline [TETRACYCLINE] Allergy (Unknown, Verified 09/14/24 10:44) HAIR LOSS Do you need a note to return to daycare/school/sports/work: Yes HPI HPI Comments History of Present Illness Details History of Present Illness The patient is a 54-year-old female presenting with 6 days of symptoms related to acute viral sinusitis and chronic cough. The sinusitis appears to be superimposed on a history of chronic sinus issues due to a known deviated nasal septum on the left side. The current episode began six days ago, with the patient experiencing symptoms such as sore throat, headaches, fatigue, muscle aches, and persistent cough. Accompanying symptoms include a fever, which peaked at approximately 100.6?F, and the sensation of phlegm in the throat, associated with a chronic cough persisting for 20-30 years and Patient states she has been asking her doctors about this for years but nobody seems to know what it is and no one has helped her with it. She reported the recent production of mucus, which transitioned from creamy white to yellow and now presents as green and brown with occasional blood in the form of mucus plugs. [id number] Mucinex (generic) is being used twice daily with no evident relief. The patient also noted a past episode of toothache suggestive of abscesses, not professionally examined due to dental anxiety. Despite prior observation for urinary tract infection, a lingering sense of dehydration and frequent micturition continue, details of which have not been confirmed in recent lab results. Physical Exam General: Cooperative, healthy appearing, comfortable and no acute distress Orientation/consciousness: Patient oriented x3 Limitations: No limitations Head: Normal to inspection Ears: Hearing grossly normal bilaterally, external ears normal and TM's normal bilaterally Nose: Normal external nose present, Normal nares present and No nasal discharge present Face and sinus: Normal facial exam and Sinuses tender Mouth: Normal oral and palatal mucosa present and moist mucous membranes Throat: Yes tonsils normal, Yes uvula midline. Posterior oropharynx erythema Eyes: Appearance normal, both eyes and all related structures Neck: Normal visual inspection Respiratory: Clear to auscultation bilaterally. Normal respiratory effort, able to speak in complete sentences, Actively coughing, no respiratory distress, not tachypneic, no tripod positioning and no use of accessory muscles Cardiovascular: Regular rate and rhythm. Normal S1 and S2 Skin: No rashes or lesions noted Neuro: Patient oriented x3 Extremities: Normal to inspection and Yes no clubbing, cyanosis or edema PFSH Surgical History History of bunionectomy Hx of tubal ligation Family History Mother Substance use disorder Sister Substance use disorder Maternal Grandfather Colon cancer Father FH: kidney cancer Social History Housing: Condominium Alcohol intake: current Alcohol intake frequency: holidays/special occasions only Patient Tobacco Use Status: Former Tobacco user e-Cigarette/Vaping Use: Never Used Second Hand Smoke Exposure: No service: No Current occupational status: employed Current occupation: [employer] Current occupational exposures/hazards: No Cognitive needs: No Hearing needs: No Vision needs: Yes Female Reproductive History Menstrual Age of Menarche: 15 Review of Systems Const All systems reviewed & are unremarkable except as noted in HPI and below Physical Exam Vital Signs: Last Vital Signs Temp 99 F 09/14/24 10:38 Pulse 85 09/14/24 10:38 BP 132/80 09/14/24 10:38 Pulse Ox 98 09/14/24 10:38 Oxygen Delivery Method Room Air 09/14/24 10:38 BMI result Body Mass Index 37.0 Results AMB Urinalysis, Automated UA Leukoctes 0 Hussain/uL Last Edit by BASSEM Martinez on 09/14/24 11:27 UA Nitrite Negative Last Edit by BASSEM Martinez on 09/14/24 11:27 UA Urobilinogen 0.2 mg/dL Last Edit by BASSEM Martinez on 09/14/24 1 1:2 7 UA Protein 0 mg/dL Last Edit by BASSEM Martinez on 09/14/24 11:27 UA pH 6.0 Last Edit by Veronica Merchant CCM on 09/14/24 11:27 UA Blood 0 Gilberto/uL Last Edit by BASSEM Martinez on 09/14/24 11:27 UA Specific [place] 1.020 Last Edit by BASSEM Martinez on 09/14/24 11:27 UA Ketone Negative Last Edit by Veronica Merchant CCM on 09/14/24 11:27 UA Bilirubin 0 mg/dL Last Edit by BASSEM Martinez on 09/14/24 11:27 UA Glucose 0 mg/dL Last Edit by Veronica Merchant [facility] on 09/14/24 11:27 Assessment & Plan Assessment & Plan (1) Acute sinusitis: Code(s): J01.90 - Acute sinusitis, unspecified Qualifiers: Sinusitis location: frontal Recurrence: recurrent Qualified Code(s): J01.11 - Acute recurrent frontal sinusitis Plan: Plan - Acute Viral Sinusitis: Suspected viral etiology due to symptomatology and the loss of voice; viral testing for influenza, COVID-19, and RSV performed. Recommend symptomatic management with rest, hydration, and continuation of Mucinex. Consider Flonase for additional nasal symptom relief, targeting nasal spray towards nasal bone for effect. Acknowledge likelihood of self-resolution. - Deviated Nasal Septum: Chronic condition contributes to sinusitis; no acute plan at this time. The patient is advised to continue managing symptoms, with surgical referral at discretion of primary care physician if required. - Other Symptoms: Urinary symptoms and dehydration reported without recent lab follow-up, suggested primary care physician review to assess for any non-urgent correlation - Hygiene and Mask Usage: Advised mask-wearing in public and professional settings given active viral infection status. (2) Chronic cough: Code(s): R05.3 - Chronic cough Plan: Trial of omeprazole suggested to evaluate potential GERD as a causative factor. Patient is informed about the need for follow-up in case omeprazole provides symptomatic relief and to explore further management options for reflux with her PCP. (3) Tooth pain: Code(s): K08.89 - Other specified disorders of teeth and supporting structures Plan: Possible Tooth Abscess: Nothing notable on exam. Urged referral to dental care to address possible abscess and prevent further complications. Emphasis placed on the potential development of serious infection if left untreated. (4) Polyuria: Code(s): R35.89 - Other polyuria Plan: Recent labs show blood glucose RNL. In office urinalysis is negative, we will send for culture and treat patient if the culture turns positive. Orders: Orders Urine Culture Today N39.0 - Urinary tract infection, site not specified SARS-CoV2/FLU/RSV Today J01.11 - Acute recurrent frontal sinusitis Coding Level of Care Code Est Pt Level 5 (67780) Diagnoses Acute recurrent frontal sinusitis J01.11 Sinusitis location: frontal Recurrence: recurrent Chronic cough R05.3 Tooth pain K08.89 Polyuria R35.89
[2024-09-14 10:38] VITALS: BP 132/80; PULSE 85; TEMP 37.2; O2SAT 98; BMI 37.0
== END 2024-09-14 11:30 | disposition home or self-care (01) ==
PROVIDERS: Visit Provider Physician Assistant
DX: J01.11 Acute recurrent frontal sinusitis (principal); R05.3 Chronic cough; R35.89 Other polyuria; K08.89 Other specified disorders of teeth and supporting structures

== ENCOUNTER 2024-10-21 08:56 | Outpatient (AMB) | payer OTHER, SELFPAY ==
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
[2024-10-21 09:01] VITALS: BP 112/66; PULSE 75; O2SAT 97; BMI 37.5
== END 2024-10-21 09:56 | disposition home or self-care (01) ==
PROVIDERS: Visit Provider Internal Medicine
DX: F41.8 Other specified anxiety disorders (principal); G40.909 Epilepsy, unspecified, not intractable, without status epilepticus; Z91.09 Other allergy status, other than to drugs and biological substances; R09.81 Nasal congestion; R05.3 Chronic cough; R79.89 Other specified abnormal findings of blood chemistry; E55.9 Vitamin D deficiency, unspecified; E66.812 Obesity, class 2; E66.09 Other obesity due to excess calories; Z68.36 Body mass index [BMI] 36.0-36.9, adult; K21.9 Gastro-esophageal reflux disease without esophagitis

== ENCOUNTER → 2024-10-21 08:56 | Outpatient (BNVA) | payer OTHER, SELFPAY | PROVIDERS: Visit Provider Internal Medicine | DX: K21.9 Gastro-esophageal reflux disease without esophagitis (principal); F41.8 Other specified anxiety disorders; G40.909 Epilepsy, unspecified, not intractable, without status epilepticus; R09.81 Nasal congestion; R05.3 Chronic cough; R79.89 Other specified abnormal findings of blood chemistry; E55.9 Vitamin D deficiency, unspecified; E66.812 Obesity, class 2; Z68.36 Body mass index [BMI] 36.0-36.9, adult; Z91.09 Other allergy status, other than to drugs and biological substances | CPT/HCPCS: 96127; 99212 ==

== ENCOUNTER → 2024-11-04 09:36 | Outpatient (BNVA) | payer OTHER, SELFPAY | PROVIDERS: Visit Provider Surgery ==

== ENCOUNTER → 2024-11-13 07:56 | Outpatient (BNVA) | payer OTHER, SELFPAY | PROVIDERS: PCP Internal Medicine; Visit Provider Surgery ==

== ENCOUNTER 2025-01-01 08:41 | Day surgery (SDC) | payer OTHER, SELFPAY ==
--- OUTSIDE RECORDS SUMMARY | 2024-12-09 17:18 | XMS_ITS | Data Portability ---
Author Organization [facility] Address [address] [place] [address] Care Team Providers Care Certified Flex Endoscope Reprocessor Name Role Phone CARLOS SANCHES Primary Care Provider Assessment No assessment recorded. Plan of Treatment Reminders Order Date Submit Date Provider Last Modified By Organization Details Last Modified Time Details Appointments None record ed. Lab CBC w/ auto diff 2022 023 [email or web address], [address], [place], [address], 3 11:37:23 TSH + free T4, serum 2022 023 [email or web address], [address], [place], [address], 3 11:37:23 HbA1c (hemog lobin A1c), blood 2022 [facility]23 [facility], [address], [place], [address], 3 11:37:23 lipid panel, serum 2022 023 [email or web address] 8 [facility], [address], [place], [address], 3 11:37:23 CMP, serum or plasma 2022 023 [email or web address] 8 [facility], [address], [place], [address], 3 11:37:24 vitami n D, 25-hyd ciara, total, serum 2022 023 [facility], [address], [place], [address], 3 11:37:24 hepati tis C Ab, qual, IA, serum or plasma 2022 023 [facility] 8 [facility], [address], [place], [address], 3 11:37:24 Referral dermat ologis t referr al 2022 023 [facility], [address], [address], [place], [address], 3 16:37:20 orthop edic surgeo n referr al - left should er pain 2022 023 [facility] [place], [address] ? ?, [address], [place], [address], 3 16:44:31 gastro entero logist referr al 2022 023 [facility] (Referrals), [address], [place], [address], 3 16:30:05 neurol ogist referr al - she has epilep syhas not had a seizur e in about a year ago in march 2022ne eds a new neurol ogist she is on lamotr igine and zonisa mide. 2022 023 TREVOR Keen MD, [address], [address], [place], [address], 3 15:11:09 Procedures None record ed. Surgeries None record ed. Imaging MAMMO, screen ing, bilate ral 2022 023 [facility], [address], [place], [address], 3 11:32:13 XR, should er, 2 or more view - left should er pain 2022 023 [facility] [facility], [address], [place], [address], 16:23:51 Medication Orders None record ed. Patient TargetsNo targets recorded. Patient Instructions Encounter Date Encounter Id Patient Instructions Last Modified By Organization Details Last Modified Time 05/14/2023 [id number] learning about vaping [email or web address] Not available 05/14/2023 11:38:08 eating healthy foods: care instructions [email or web address] Not available 05/14/2023 11:38:07 Reason for Referral Criminal Investigative Agent Referral for Screening for malignant neoplasm of colon Referring Physician: [facility], Encounter Date: 05/14/2023 Neurologist Referral for Epi lepsy she has epilepsyhas not had a seizure in about a year ago in march 2022needs a new neurologist she is on lamotrigine and zonisamide. Referring Physician: Carlos [facility], Encounter Date: 05/14/2023 Orthopedic Surgeon Referral for Pain of left shoulder joint left shoulder pain Referring Physician: Carlos [facility], Encounter Date: 05/14/2023 [facility] Manager Referral for S creening for malignant neoplasm of skin Referring Physician: Carlos Sanches [facility], Encounter Date: 05/14/2023 Results Created Date Observation Date Name Description Value Unit Range Abnormal Flag Note LastModifiedBy Organization Detail LastModifiedTime 08/01/20 23 05/14/2023 XR, shoul nick, 2 or more view No observ ation record ed. [facility] [address], [place], [address], 05/15/2023 13:03:20 Result Notes None recorded. Problems Name Problem SNOMED Code Status Onset Date Resolution Date Notes Provider Name and Address Organization Details Recorded Time Obesity 735150523 Active 023 Carlos abreu MD [address], [place], [address] , [facility] 3 11:31:09 Epilepsy 96047484 Active 023 Carlos abreu MD [address], [place], [address] , [facility] 3 11:33:25 Problem Notes None recorded. Procedures Surgical History None recorded. Imaging Results Imaging Date Name Status LastModified by Organiz ation Details LastModified Time 05/14/2023 XR, shoulder, 2 or more view completed [facility] [address], [place], [address], 05/15/2023 13:03:20 Procedure Notes None recorded. Medical Equipment None Reported. Allergies Allergen ID Allergen Name Allergen Category Reaction Reaction Severity Criticality Documentation Date Start Date Code Code System Note Provider Name and Address Organization Details Recorded Time 716962 tetracycl ine medicatio n Not available Not available Not available 05/14/2023 58691 [facility] [place] 3 11:23:18 115727 Tegretol medicatio n Not available Not available Not available 05/14/202320292 9 [facility] [place] 3 11:23:25 Medications Name Sig Start Date Stop Date Status Note LastModified by Organization Details LastModified Time lamotrigine 200 mg tablet TAKE 1 TABLET BY MOUTH TWICE DAILY active Not Available Not Available No t Available fluticasone propionate 50 mcg/actuation nasal spray,suspens ion active Not Available Not Available Not Available lamotrigine 100 mg tablet TAKE 1 TABLET BY MOUTH DAILY active Not Available Not Available No t Available zonisamide 25 mg capsule TAKE 2 CAPSULES BY MOUTH TWICE DAILY active Not Available Not Available No t Available Vitals Date Recorded Body height Body mass index (BMI) Body weight Pain severity - 0-10 verbal numeric rating [Score] - Reported Body temperature Heart rate Oxygen saturation Oxygen saturation in Arterial blood by Pulse oximetry Systolic blood pressure Diastolic blood pressure Provider Name and Address Organization Details Last Updated DateTime 3 154.94 cm 33.4 kg/m2 02067.8 5 g 4 98.1 [degF] 96 /min 98 % 98 % 120 mm[Hg] 72 mm[Hg] Mg [facility] 3 11:28:43 Social History Question Answer Notes LastModified by Organizat ion Details LastModified Time Tobacco Smoking Status Former Smoker Quit in 1997. Vapes every once in a while with CBD oil Mg [facility] 05/14/2023 11:26:58 If Pulse Oximetry Was Done: Is The Patient's Sp02 Less Than 93% On Room Air? No [email or web address] Information not available 05/14/2023 What Was The Date Of Your Most Recent Tobacco Screening? 05/14/2023 Information not available 05/14/2023 Has Tobacco Cessation Counseling Been Provided? Yes Information not available 05/14/2023 On What Date Was Tobacco Cessation Counseling Provided? 05/14/2023 [email or web address] Information not available 05/14/2023 Do You Or Have You Ever Used Any Other Forms Of Tobacco Or Nicotine? No [email or web address] Information not available 05/14/2023 Sex: Unknown Functional Status None recorded. Mental Status None recorded. Family History Nothing Reported. Medical History Condition Response Seizure Disorder Y Other Disease(s): Y Gynecological History Statement/Question Response Last Mammogram 05/14/2020 Abnormal Mammogram N Most Recent Bone Density Colonoscopy Obstetrics History GPAL:G 0 P 0 0 0 0 Past Encounters Encounter ID Performer Location Encounter Start Date Encounter Closed Date Diagnosis/Indication Diagnosis SNOMED-CT Code Diagnosis ICD10 Code Diagnosis Note [id number] Carlos abreu MD [facility] [address] [place] [address] 05/14/2023 11:07:52 05/15/2023 04:28:54 Depression screening 296230098 Z13.31 see PQH-2 result in body of chartScree vic Negative Obesity 534799475 E66.9 bmi 33.4 Diet: 1800 Calories Low Glycemic Index DietExerci se: Work up to 30 min 5x/week as tolerated Vaping 305010242 F17.29 0 Quitting smoking/[place] PING including medication s options discussed, risks and benefits discussed. Epilepsy 14705000 G40.90 9 she has epilepsyha s not had a seizure in about a year ago in march 2022needs a new neurologis tshe is on lamotrigin e and zonisamide . 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 has some limited range of motioncan' t sleep on that side due to painthen she also fell onto the left shoulder on 03/12/23, tripped and fellPatien t advised to avoid sleeping on the shoulder, take medication s as directed. Side effects of NSAIDS/Cor ticosteroi ds discussed. Avoid activities that aggravate the pain. Recheck if symptoms do not resolve or if numbness or weakness of the arm develops. PT referral discussed as an option Hepatitis C screening 41 7361206 Z11.59 Screening for malignant neoplasm of skin 869361585 Z12.83 Health Concerns Section Related Observation LastModified by Organization Detai ls LastModified Time None Recorded Concern Status LastModified by Organization Details LastModified Time None Recorded Advance Directives Directive None Recorded Payers Encounter Date Sequence Insurance Name Policy Number Policy Oglesby Covered Member ID Oglesby Member ID Guarantor Name 05/14/2023 1 [facility] [id number] Candi Berriost [id number] Candi Canales Notes Date Note Type Note Provider Name and Address Organization Details Recorded Time 05/14/2023 text/html here to compa kimballhas not had a pcp in a [place] she has epilepsyhas not had a seizure in about a year ago in march 2022needs a new neurologistshe is on lamotrigine and zonisamide. 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 has some limited range of motioncan't sleep on that side due to painthen she also fell onto the left shoulder on 03/12/23, tripped and fell she is due for annual examis due for labs is due for colonoscopy last mammogram was few years ago Carlos Sanches MD [address], [place], [address], [place] [facility] 05/14/2023 11:51:23 OBGyn Episode No OBEpisode recorded.
[2024-12-30 12:28] VITALS: BMI 37.4
--- NOTE | 2024-12-31 09:36 | HO.ANESPROP2 ---
Documented by User: Kaykay Rush NP 12/31/24 09:37 HPI - Anesthesia Eval Consult details Narrative: 54yo F for Upper Endoscopy and Colonoscopy PMFSH Active Problems Active Problems: All Active Problems Polyuria (Acute) Tooth pain (Acute) Chronic cough (Acute) UTI (urinary tract infection) (Acute) GERD (gastroesophageal reflux disease) (Acute) Acute sinusitis (Acute) Obesity due to excess calories (Acute) Vitamin D deficiency (Acute) Dysuria (Acute) LFT elevation (Acute) Food allergy (Acute) Establishing care with new doctor, encounter for (Acute) Persistent dry cough (Acute) Nasal congestion (Acute) Postnasal drip (Acute) Environmental allergies (Acute) Well woman exam with routine gynecological exam (Acute) Encounter for screening examination for sexually transmitted disease (Acute) Breast cancer screening (Acute) Cervical cancer screening (Acute) Encounter for routine adult physical exam with abnormal findings (Acute) Left shoulder pain (Acute) Depression with anxiety (Acute) Epilepsy (Acute) DJD (degenerative joint disease) (Acute) BMI 37.0-37.9, adult (Acute) Obesity (Acute) Past Medical History Medical History Anxiety Depression GERD (gastroesophageal reflux disease) Seizures DJD (degenerative joint disease) BMI 37.0-37.9, adult Obesity Family History Family History Mother Substance use disorder Sister Substance use disorder Maternal Grandfather Colon cancer Father FH: kidney cancer Surgical History Surgical History History of bunionectomy Hx of tubal ligation Social History Social History Housing: Condominium Alcohol intake: current Alcohol intake frequency: holidays/special occasions only Patient Tobacco Use Status: Former Tobacco user e-Cigarette/Vaping Use: Never Used Second Hand Smoke Exposure: No Use of substances other than those prescribed or required for medical reasons: No Are you DNR?: No Advance Directives: No Advance Directives Information Provided: Yes service: No Current occupational status: employed 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 Current occupational exposures/hazards: No Cognitive needs: No Hearing needs: No Vision needs: Yes Meds Allergies Allergy/AdvReac Type Severity Reaction Status Date / Time carbamazepine [From TEGRETOL] Allergy Unknown RASH Verified 01/01/25 09:51 tetracycline [TETRACYCLINE] Allergy Unknown HAIR LOSS Verified 01/01/25 09:51 Home Medications ?Medication ?Instructions ?Recorded ?Confirmed ?Last Taken ?Type pantoprazole 40 mg tablet,delayed 40 mg PO DAILY 11/13/24 01/01/25 Unknown History release Exam Height,Weight and Vital Signs: Height 5 ft 1 in Weight 89.811 kg Assessment and Plan Assessment Anesthesia Assessment: Chart Reviewed Documented by User: Hina Rosado MD 01/01/25 10:24 PMFSH Past Medical History Medical History Anxiety Depression GERD (gastroesophageal reflux disease) Seizures DJD (degenerative joint disease) BMI 37.0-37.9, adult Obesity Family History Family History Mother Substance use disorder Sister Substance use disorder Maternal Grandfather Colon cancer Father FH: kidney cancer Family history of problems with anesthesia: No Surgical History Surgical History History of bunionectomy Hx of tubal ligation History of Problems with Anesthesia: No Social History Social History Housing: Condominium Alcohol intake: current Alcohol intake frequency: holidays/special occasions only Patient Tobacco Use Status: Former Tobacco user e-Cigarette/Vaping Use: Never Used Second Hand Smoke Exposure: No Use of substances other than those prescribed or required for medical reasons: No Are you DNR?: No Advance Directives: No Advance Directives Information Provided: Yes service: No Current occupational status: employed 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 Current occupational exposures/hazards: No Cognitive needs: No Hearing needs: No Vision needs: Yes Meds Allergies Allergy/AdvReac Type Severity Reaction Status Date / Time carbamazepine [From TEGRETOL] Allergy Unknown RASH Verified 01/01/25 09:51 tetracycline [TETRACYCLINE] Allergy Unknown HAIR LOSS Verified 01/01/25 09:51 Home Medications ?Medication ?Instructions ?Recorded ?Confirmed ?Last Taken ?Type pantoprazole 40 mg tablet,delayed 40 mg PO DAILY 11/13/24 01/01/25 Unknown History release Exam Height,Weight and Vital Signs: Height 5 ft 1 in Weight 89.811 kg Vital Signs Temp Pulse Resp BP Pulse Ox O2 Del Method 01/01/25 10:03 98.3 F 75 20 118/67 97 Room Air Airway Mallampati Class: II TM Dist: >3cm Neck ROM: Full Loose/Missing/Broken Teeth: Yes (Missing wisdom teeth. Denies broken or loose teeth) Heart: RRR Lungs: CTAB Assessment and Plan Assessment Anesthesia Assessment: Anesthesia Plan Discussed and Chart Reviewed Final Anesthetic Review Family History of Problems with Anesthesia: No History of Problems with Anesthesia: No NPO: Yes ASA Class: III Final Preanesthetic Review: No Changes in Pt Med Stat, Meds/Allgs Chart Reviewed, Consent Obtained/Reviewed and Anes Risks/Benef Reviewed Patient Risk: Intermediate Procedure Risk: Low Assessment/Block/Sedation in SS: Assess/Block/Sedation-SS Anesthetic Plan Anesthetic Plan: TIVA Disposition: Standard PACU
[2025-01-01 09:55] VITALS: BMI 34.8
[2025-01-01 10:03] VITALS: BP 118/67; PULSE 75; RESP 20; TEMP 36.8; O2SAT 97
--- NOTE | 2025-01-01 10:03 | MHC.SHP ---
Pre-Procedural Eval Section A - 24 Hr Update-Section A only Date of Service: 01/01/25 The patient is an INPATIENT: No The patient has been examined within 24 hours of the surgical procedure. The History & Physical has been completed within 30 days and I have reviewed it.: No Section B - Complete if H&P > 30 days Chief Complaint: Screening, epigastric pain, GERD Relevant Family History (Specify if Yes): Yes Relevant Social History: Tobacco Use (Former smoker) Present Medications: see Short Stay Collaborative assessment Medical History: Significant History (GERD, epilepsy, anxiety and depression) History of Previous Operations: Relevant previous surgery/procedure and date(s) (History of bunionectomy Hx of tubal ligation) Allergies: Allergies Allergy/AdvReac Type Severity Reaction Status Date / Time carbamazepine [From TEGRETOL] Allergy Unknown RASH Verified 01/01/25 09:51 tetracycline [TETRACYCLINE] Allergy Unknown HAIR LOSS Verified 01/01/25 09:51 Review of Systems Sugical H&P ROS: Negative: Constitution, Cardiovascular and Respiratory and Yes, Specify: Gastrointestinal (GERD) Exam Surgical H&P Exam: Normal: Heart, Normal: Lungs, Normal: Extremities and Normal: Abdomen Plan Diagnosis/Plan: Unchanged I have reviewed the history and physical and performed a pertinent physical examination on my patient. No changes have occurred unless specified. Time Spent With Patient Time: Total time managing care of this patient today ____ minutes.
[2025-01-01] MEDS: Lactated Ringers 1,000 ML 100 ML IVCONT (10:14)
--- NOTE | 2025-01-01 10:52 | HO.OPN-COLON ---
Colonoscopy Operative Note Operative Note Date of Service: 01/01/25 Narrative: FLEXIBLE TRANSORAL UPPER GASTROINTESTINAL ENDOSCOPY WITH BIOPSIES AND ESOPHAGEAL BALLOON DILATION AND COLONOSCOPY TILL CECUM WITH BIOPSIES Pre-op diagnosis: Colon cancer screening, GERD, dysphagia, abd pain and bloating FH of colon cancer (Mat GF in his 60's) Post-op diagnosis: GERD, Dysphagia, Esophagitis, Gastritis, Colon Polyps, Diverticulosis, hemorrhoids Specimens and Sources: : A. Small Bowel Biopsy R/O Celiac ?B. Gastric Antrum Biopsy R/O H. Pylori ?C. Gastric Body Biopsies ?D. Distal Esophagus R/O EOE ?E. Mid Esophagus Biopsies ?F. Proximal Esophagus Biopsies ?G. Cecal Polyp ?H. Sigmoid Polyp Endoscopist:? Clyde Schmidt MD Anesthesia:?[facility] Consent: Indications for the procedure and potential complications of bleeding, perforation, reaction to medications and missed diagnosis were discussed with the patient and informed consent was obtained. Instrument: Olympus GIF H 190 mid size upper endoscope Monitoring: Vital signs and clinical assessment, continuous EKG monitoring, Pulse oximetry, Carbon Dioxide monitoring and blood pressure monitoring were done throughout the procedure. Procedure: The patient was placed in the left lateral decubitis position and pre-procedure medications were administered and a bite block was placed. The endoscope was inserted into the mouth and advanced under direct vision to the third part of duodenum. A careful inspection was made as the upper endoscope was withdrawn including a retroflexed examination of the proximal stomach; Findings and interventions are described below. Findings: Larynx: Normal Esophagus: Mildly tortuous esophagus without stricture or ring. GE junction at 36 cms. A single 1 cms healing erosion ar GE junction. No Balderas's. Empiric balloon dilation was performed with a 20 mm CRE balloon Biopsies Stomach: Moderate diffuse gastric erythema - biopsies were obtained from the gastric body and antrum. Grade 2 flap valve on retroflexed examination of the cardia. Duodenum: Normal bulb and descending duodenum Biopsies were obtained from descending duodenum to check for celiac sprue Intervention: Biopsies as noted above COLONOSCOPY PROCEDURE NOTE Instrument: Olympus PCF H 190 L variable stiffness pediatric colonoscope Monitoring: Vital signs and clinical assessment, intermittent blood pressure monitoring, continuous EKG monitoring, Pulse oximetry and Carbon Dioxide monitoring were done throughout the procedure. Please see anesthesia flowsheet. Colon withdrawl time was 13 minutes. Procedure: The patient was placed in the left lateral decubitis position and pre-procedure medications were administered. After a digital rectal examination of the ano-rectum, the video colonoscope was inserted into the rectum and advanced through the colon to the cecum. The colonoscope was slowly withdrawn in a retrograde panoramic fashion and the colon mucosa was carefully examined including a retroflexed view of the rectum. Findings and interventions are described below. Procedure Difficulty: without difficulty Findings: Terminal Ileum: Not evaluated Cecum: A 2-3 mm diminutive appearing polyp - removed with a cold biopsy Ascending Colon: Normal Transverse Colon: Normal Descending Colon: Moderate diverticulosis Sigmoid Colon: Severe diverticulosis with luminal narrowing Rectum: Normal Ano-rectum: Small internal hemorrhoids Colon preparation: Good after some irrigation. Golden Bowel Preparation Scale Right colon; 2 Transverse colon: 2 Left colon; 2 (0 = Unprepared colon segment with mucosa not seen due to solid stool that cannot be cleared. 1 = Portion of mucosa of the colon segment seen, but other areas of the colon segment not well seen due to staining, residual stool and/or opaque liquid. 2 = Minor amount of residual staining, small fragments of stool and/or opaque liquid, but mucosa of colon segment seen well. 3 = Entire mucosa of colon segment seen well with no residual staining, small fragments of stool or opaque liquid) Impression and Post Procedure Diagnosis: Endoscopy Findings: ESOPHAGUS: STOMACH: DUODENUM: Colonoscopy Findings: Two small polyps were removed Moderate to severe diverticulosis seen in the left colon small hemorrhoids on retroflexed exam. Plan: Pt advised to schedule a FU appointment with Milena Hernández, Repeat Colonoscopy in 5 years if polyps are adenomatous and due to a family history of colon cancer Above findings were reviewed with the patient and relevant handouts were given and the discharge area.
[2025-01-01 11:23] VITALS: BP 106/61; PULSE 82; RESP 28; TEMP 36.1; O2SAT 92
[2025-01-01 11:38] VITALS: BP 106/43; PULSE 78; RESP 20; TEMP 36.1; O2SAT 96
== END 2025-01-01 12:21 | disposition home or self-care (01) ==
PROVIDERS: PCP Internal Medicine; Visit Provider Internal Medicine Gastroenterology
PROC: (CPT 45380; principal; 2025-01-01 10:30)
DX: Z12.11 Encounter for screening for malignant neoplasm of colon (principal); K63.5 Polyp of colon; K57.30 Diverticulosis of large intestine without perforation or abscess without bleeding; K56.699 Other intestinal obstruction unspecified as to partial versus complete obstruction; K64.8 Other hemorrhoids; K29.60 Other gastritis without bleeding; K22.4 Dyskinesia of esophagus; K20.0 Eosinophilic esophagitis; K90.0 Celiac disease; K21.9 Gastro-esophageal reflux disease without esophagitis; R13.10 Dysphagia, unspecified; Z87.891 Personal history of nicotine dependence; Z79.899 Other long term (current) drug therapy
CPT/HCPCS: 45380; 43249; 43239; 88305; 88313; 88342; C1726; J1596; J2003; J2704

== ENCOUNTER → 2025-01-01 08:41 | Outpatient (BNV) | payer OTHER, SELFPAY | PROVIDERS: PCP Internal Medicine; Visit Provider Internal Medicine Gastroenterology | DX: Z12.11 Encounter for screening for malignant neoplasm of colon (principal); Z80.0 Family history of malignant neoplasm of digestive organs; K63.5 Polyp of colon; K57.30 Diverticulosis of large intestine without perforation or abscess without bleeding; K21.9 Gastro-esophageal reflux disease without esophagitis; R13.10 Dysphagia, unspecified; K29.70 Gastritis, unspecified, without bleeding; K22.10 Ulcer of esophagus without bleeding | CPT/HCPCS: 43239; 43249; 45380 ==

== ENCOUNTER 2025-01-27 13:49 | Outpatient (AMB) | payer OTHER, SELFPAY ==
--- NOTE | 2025-01-27 13:52 | MHC.PC.OV ---
Vital Signs 01/27/25 14:02 Height 5 ft 1 in Weight 191 lb 4 oz BMI 36.1 BP 122/80 Blood Pressure Location Lt brachial Position Sitting Pulse 79 Pulse Source Pulse Oximeter Pulse Oximetry (%) 97 Oxygen Delivery Method Room Air Intake Visit Reasons: Annual Allergies carbamazepine [From TEGRETOL] Allergy (Unknown, Verified 01/01/25 09:51) RASH tetracycline [TETRACYCLINE] Allergy (Unknown, Verified 01/01/25 09:51) HAIR LOSS Medication List - Last Reconciled 01/27/25 by Janett Moreira MD cholecalciferol (vitamin D3) 1,250 mcg PO QWEEK 3 months fluticasone propionate 50 mcg/actuation 2 sprays intranasal DAILY lamotrigine 200 mg PO BID loratadine (Allergy Relief (loratadine)) 10 mg PO DAILY PRN pantoprazole 40 mg PO DAILY zonisamide 50 mg (2 x 25 mg) PO BID Tobacco use date assessed: 10/21/24 Dental Screening Dental Screen Date: 10/21/24 HPI Annual HPI Details History of Present Illness - The patient is a 54-year-old female presenting for a physical exam and follow-up on ongoing medical issues. - The patient has a history of diverticulosis diagnosed during a prior colonoscopy. A follow-up colonoscopy is scheduled for April 07. - The patient reports a history of gastroesophageal reflux disease and noted that recommendations were made to manage irritation through medication. - There are diagnostic features suggestive of celiac disease noted on previous reports, although patient awareness of this condition appears limited. The patient was advised to avoid gluten. - The patient has environmental allergies to dust, dust mites, and mold. A prior environmental screening ruled out a food allergy, and a subsequent follow-up for food allergy testing is scheduled for June. - Eosinophilic esophagitis secondary to food allergies is hypothesized, impacting her food pipe's inflammation. - The patient reports noticing weight gain and an elevated BMI of 36.1, which is associated with elevated liver enzymes suggestive of hepatic steatosis. The patient desires nutritional education for weight loss and avoidance of bariatric surgery. 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 - Previous laboratory results indicated slightly elevated liver enzymes, historically associated with obesity rather than alcohol consumption. Health Maintenance [place] [facility] Medications - Vitamin D 2000 mg per day for supplementation. - No current medications reported from this office. 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 - Reports shoulder discomfort potentially related to repetitive use from occupation, further exacerbated by past falls. Diagnostic results - Colonoscopy indicating diverticulosis; next appointment scheduled for April 07. - Endoscopy showing diagnostic features suggestive of celiac disease. - Previous labs indicated slightly elevated liver enzymes associated with obesity. Patient Instructions - Follow a gluten-free diet to address celiac disease and related symptoms. - Increase awareness of caloric intake, focusing on protein, fruits, and vegetables. - Chew nuts thoroughly to prevent obstruction due to diverticulosis. - Engage in regular physical activity and hydration. - Follow up on scheduled appointments for colonoscopy and lawn care specialist. - Continue daily Vitamin D supplementation as discussed. Review of Systems - Gastrointestinal: Reports history of gastroesophageal reflux disease; denies current abdominal pain. - Musculoskeletal: Reports shoulder discomfort due to overuse and a past fall. - Respiratory: Reports environmental allergies; denies current respiratory symptoms. - Integumentary: Denies current skin rashes, past episodes possibly related to dietary intake. - Psychological: Undergoing transition to a new therapist, previous therapist, provided good support. - General: Reports past elevated liver enzymes; currently addressed through lifestyle changes. - General: No fever no chills - Neurological: No headaches no dizziness - Ear nose throat: No sore throat no hearing difficulty no ear pain - Cardiovascular: No syncope, no chest pain, no palpitations - Gastrointestinal: No nausea vomiting or diarrhea - Endocrine: No polyuria polydipsia no heat intolerance - Genitourinary: No dysuria - Skin: No new complaints Physical Exam General: Cooperative, healthy appearing, comfortable, no acute distress Orientation: Patient oriented x3 Limitations: Head: Normal to inspection Ears: Within normal limit visually Nose: Normal external nose present Face and sinus: Normal facial exam Eyes: Appearance normal, extraocular movement intact pupils reactive Neck: Normal visual inspection and supple Respiratory: Normal respiratory effort and able to speak in complete sentences. Clear to auscultation, no stridor Cardiovascular: S1 and S2 GI: Normal to inspection. Soft to palpation and nontender Skin: Turgor normal, no acute findings, eczema noted Neuro: Patient oriented x3, motor sensory intact, balance intact, tandem pass Extremities: Normal to inspection, shoulders experiencing discomfort due to overuse, knees okay, no back problems [facility] Medical History Anxiety Depression GERD (gastroesophageal reflux disease) Seizures DJD (degenerative joint disease) BMI 37.0-37.9, adult Obesity Surgical History History of bunionectomy Hx of tubal ligation Family History Mother Substance use disorder Sister Substance use disorder Maternal Grandfather Colon cancer Father FH: kidney cancer Social History Housing: Condominium Alcohol intake: current Alcohol intake frequency: holidays/special occasions only Patient Tobacco Use Status: Former Tobacco user e-Cigarette/Vaping Use: Never Used Second Hand Smoke Exposure: No service: No Current occupational status: employed 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 Current occupational exposures/hazards: No Cognitive needs: No Hearing needs: No Vision needs: Yes Female Reproductive History Menstrual Age of Menarche: 15 Questionnaire Thrive Questionnaire Date Thrive assessed: 10/14/24 I am a: Patient What is your living situation today?: I have a steady place to live Within the past 12 months, did the food you bought not last and you didn't have the money to get more?: I choose not to answer this question Within the past 12 months, did you worry whether your food would run out before you got money to buy more?: I choose not to answer this question Do you have trouble paying for medicines?: No Do you have trouble getting transportation to medical appointments?: No Do you have trouble paying your heating and electricity bill?: No Do you have trouble taking care of your child, family member or friend?: No Do you have trouble with day-to-day activities such as bathing, preparing meals, shopping, managing finances, etc.?: No Are you currently unemployed and looking for a job?: No Are you interested in more education?: Yes Please select the resources that you would like help with: Education THRIVE Score: 0 PAIGE-7 AMB Questionnaire PAIGE-7 Date PAIGE - 7 assessed: 10/21/24 Source: Developed by Drs. Conor Miranda, Deepti Phillip, Arnold Baugh and colleagues, with an educational samreen from [employer]. Physical exam (Primary Care) Vital Signs: Last Vital Signs Pulse 79 01/27/25 14:02 BP 122/80 01/27/25 14:02 Pulse Ox 97 01/27/25 14:02 Oxygen Delivery Method Room Air 01/27/25 14:02 BMI result Body Mass Index 36.1 Tobacco/Smoking Status: Tobacco use Status Tobacco use date assessed 10/21/24 01/27/25 13:52 Patient Tobacco Use Status Former Tobacco user 01/27/25 13:52 e-Cigarette/Vaping Use Never Used 01/27/25 13:52 Thrive Assessment: Date of Thrive Assessment Date Thrive assessed 10/14/24 01/27/25 13:52 Coding Level of Care Code Est Pt Level 3 (32660) Est Pt Prev Care 40-64y(51005) Diagnoses Encounter for general adult medical examination with abnormal findings Z00.01 Eosinophilic esophagitis K20.0 Celiac disease K90.0 Gastroesophageal reflux disease, unspecified whether esophagitis present K21.9 Esophagitis presence: esophagitis presence not specified Class 2 obesity due to excess calories without serious comorbidity with body mass index (BMI) of 36.0 to 36.9 in adult E66.812; E66.09; Z68.36 Body mass index: BMI 36.0-36.9 Obesity classification: adult class 2 (BMI 35 - 39.9) Serious obesity comorbidity presence: without serious comorbidity Vitamin D deficiency E55.9 LFT elevation R79.89 Food allergy Z91.018 Diverticulosis K57.90 Assessment & Plan Assessment & Plan (1) Encounter for general adult medical examination with abnormal findings: Code(s): Z00.01 - Encounter for general adult medical examination with abnormal findings Category: Medical (2) Eosinophilic esophagitis: Code(s): K20.0 - Eosinophilic esophagitis Category: Medical (3) Celiac disease: Code(s): K90.0 - Celiac disease Category: Medical (4) GERD (gastroesophageal reflux disease): Code(s): K21.9 - Gastro-esophageal reflux disease without esophagitis Category: Medical Qualifiers: Esophagitis presence: esophagitis presence not specified Qualified Code(s): K21.9 - Gastro-esophageal reflux disease without esophagitis (5) Obesity due to excess calories: Code(s): E66.09 - Other obesity due to excess calories Category: Medical Qualifiers: Body mass index: BMI 36.0-36.9 Obesity classification: adult class 2 (BMI 35 - 39.9) Serious obesity comorbidity presence: without serious comorbidity Qualified Code(s): E66.812 - Obesity, class 2; E66.09 - Other obesity due to excess calories; Z68.36 - Body mass index [BMI] 36.0-36.9, adult (6) Vitamin D deficiency: Code(s): E55.9 - Vitamin D deficiency, unspecified Category: Medical (7) LFT elevation: Code(s): R79.89 - Other specified abnormal findings of blood chemistry Category: Medical (8) Food allergy: Code(s): Z91.018 - Allergy to other foods Category: Medical (9) Diverticulosis: Code(s): K57.90 - Diverticulosis of intestine, part unspecified, without perforation or abscess without bleeding Category: Medical Plan - The patient is a 54-year-old female presenting for a physical exam and follow-up on ongoing medical issues. - The patient has a history of diverticulosis diagnosed during a prior colonoscopy. A follow-up colonoscopy is scheduled for April 07. - The patient reports a history of gastroesophageal reflux disease - There are diagnostic features suggestive of celiac disease noted on EGD, The patient was advised to avoid gluten. - The patient has environmental allergies to dust, dust mites, and mold. A prior environmental screening ruled out a food allergy, and a subsequent follow-up for food allergy testing is scheduled for June. - Eosinophilic esophagitis secondary to food allergies possibility, diagnosed with the EGD - The patient reports noticing weight gain and an elevated BMI of 36.1, which is associated with elevated liver enzymes suggestive of hepatic steatosis. The patient desires nutritional education for weight loss and avoidance of bariatric surgery. 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 - Previous laboratory results indicated slightly elevated liver enzymes, historically associated with obesity rather than alcohol consumption. 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 Diagnostic results - Colonoscopy indicating diverticulosis; hyperplastic polyp - Endoscopy showing diagnostic features suggestive of celiac disease. And esophagitis eosinophilic - Previous labs indicated slightly elevated liver enzymes associated with obesity. Patient Instructions - Follow a gluten-free diet to address celiac disease and related symptoms. - Increase awareness of caloric intake, focusing on protein, fruits, and vegetables. - Chew nuts thoroughly to prevent obstruction due to diverticulosis. - Engage in regular physical activity and hydration. - Follow up on scheduled appointments - Continue daily Vitamin D supplementation as discussed. No medication from this office Orders: Orders Complete Blood Count Auto Diff Today E55.9 - Vitamin D deficiency, unspecified, E66.09 - Other obesity due to excess calories, E66.812 - Obesity, class 2, K21.9 - Gastro-esophageal reflux disease without esophagitis, R79.89 - Other specified abnormal findings of blood chemistry, Z00.01 - Encounter for general adult medical examination with abnormal findings, Z68.36 - Body mass index [BMI] 36.0-36.9, adult, Z91.018 - Allergy to other foods Comprehensive Met. Panel Today E55.9 - Vitamin D deficiency, unspecified, E66.09 - Other obesity due to excess calories, E66.812 - Obesity, class 2, K21.9 - Gastro-esophageal reflux disease without esophagitis, R79.89 - Other specified abnormal findings of blood chemistry, Z00.01 - Encounter for general adult medical examination with abnormal findings, Z68.36 - Body mass index [BMI] 36.0-36.9, adult, Z91.018 - Allergy to other foods
[2025-01-27 14:02] VITALS: BP 122/80; PULSE 79; O2SAT 97; BMI 36.1
--- OUTSIDE RECORDS SUMMARY | 2025-01-27 16:31 | XMS_ITS | Data Portability ---
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 Plan of Treatment Reminders Order Date Submit Date Provider Last Modified By Organization Details Last Modified Time Details Appointments None record ed. Lab CBC w/ auto diff 2022 023 [email or web address], [address], [place], [address], 3 11:37:23 TSH + free T4, serum 2022 023 [email or web address] 8 [facility], [address], [place], [address], 3 11:37:23 HbA1c (hemog lobin A1c), blood 2022 023 [facility], [address], [place], [address], 3 11:37:23 lipid panel, serum 2022 023 [email or web address] 8 [facility], [address], [place], [address], 3 11:37:23 CMP, serum or plasma 2022 023 [email or web address] 8 [facility], [address], [place], [address], 3 11:37:24 vitami n D, 25-hyd ciara, total, serum 2022 023 [facility], [address], [place], [address], 3 11:37:24 hepati tis C Ab, qual, IA, serum or plasma 2022 023 [facility] 8 [facility], [address], [place], [address], 3 11:37:24 Referral dermat ologis t referr al 2022 023 [facility], [address], [address], [place], [address], 3 16:37:20 orthop edic surgeo n referr al - left should er pain 2022 023 [facility] [place], [address] ? ?, [address], [place], [address], 3 16:44:31 gastro entero logist referr al 2022 023 [facility] (Referrals), [address], [address], [place], [address], 3 16:30:05 neurol ogist referr al - she has epilep syhas not had a seizur e in about a year ago in march 2022ne eds a new neurol ogist she is on lamotr igine and zonisa mide. 2022 023 TREVOR Keen MD, [address], [address], [place], [address], 3 15:11:09 Procedures None record ed. Surgeries None record ed. Imaging MAMMO, screen ing, bilate ral 2022 023 [email or web address], [address], [place], [address], 3 11:32:13 XR, should er, 2 or more view - left should er pain 2022 023 [place] [facility], [address], [place], [address], 16:23:51 Medication Orders None record ed. Patient TargetsNo targets recorded. Patient Instructions Encounter Date Encounter Id Patient Instructions Last Modified By Organization Details Last Modified Time 05/14/2023 [id number] learning about vaping [email or web address] Not available 05/14/2023 11:38:08 eating healthy foods: care instructions [email or web address] Not available 05/14/2023 11:38:07 Reason for Referral Extractor Operator Referral for Screening for malignant neoplasm of [...] [facility], Encounter Date: 05/14/2023 Pin Sticker Referral for S creening for malignant neoplasm of skin Referring Physician: [facility], Encounter Date: 05/14/2023 Results Created Date Observation Date Name Description Value Unit Range Abnormal Flag Note LastModifiedBy Organization Detail LastModifiedTime 08/01/20 23 05/14/2023 XR, shoul nick, 2 or more view No observ ation record ed. [facility] [address], [place], [address], 05/15/2023 13:03:20 Result Notes None recorded. Problems Name Problem SNOMED Code Status Onset Date Resolution Date Notes Provider Name and Address Organization Details Recorded Time Obesity 733793718 Active 023 Carlos abreu MD [address], [place], [address] , [facility] 3 11:31:09 Epilepsy 99572168 Active 023 Carlos abreu MD [address], [place], [address] , [facility] 3 11:33:25 Problem Notes None recorded. Procedures Surgical History None recorded. Imaging Results Imaging Date Name Status LastModified by Organiz ation Details LastModified Time 05/14/2023 XR, shoulder, 2 or more view completed [facility] [address], [place], [address], 05/15/2023 13:03:20 Procedure Notes None recorded. Medical Equipment None Reported. Allergies Allergen ID Allergen Name Allergen Category Reaction Reaction Severity Criticality Documentation Date Start Date Code Code System Note Provider Name and Address Organization Details Recorded Time 793579 tetracycl ine medicatio n Not available Not available Not available 05/14/2023 22041 [facility] 3 11:23:18 955675 Tegretol medicatio n Not available Not available Not available 05/14/202320292 9 [facility] 3 11:23:25 Medications Name Sig Start Date [...] Updated DateTime 3 154.94 cm 33.4 kg/m2 35910.8 5 g 4 98.1 [degF] 96 /min 98 % 98 % 120 mm[Hg] 72 mm[Hg] Mg Valladares [facility] 3 11:28:43 Social History Question Answer Notes LastModified by Organizat ion Details LastModified Time Tobacco Smoking Status Former Smoker Quit in 1997. Vapes every once in a while with CBD oil Mg Valladares [facility] 05/14/2023 11:26:58 If Pulse Oximetry Was Done: Is The Patient's Sp02 Less Than 93% On Room Air? No [email or web address] Information not available 05/14/2023 What Was The Date Of Your Most Recent Tobacco Screening? 05/14/2023 [email or web address] Information not available 05/14/2023 Has Tobacco Cessation Counseling Been Provided? Yes [email or web address] Information not available 05/14/2023 On What Date Was Tobacco Cessation Counseling Provided? 05/14/2023 [email or web address] Information not available 05/14/2023 Do You Or Have You Ever Used Any Other Forms Of Tobacco Or Nicotine? No Information not available 05/14/2023 Sex: Unknown Functional [...] SNOMED-CT Code Diagnosis ICD10 Code Diagnosis Note [id number] Carlos abreu MD [facility] [address] [place] [address] 05/14/2023 11:07:52 05/15/2023 04:28:54 Depression screening 427582368 Z13.31 see PQH-2 result in body of chartScree vci Negative Obesity 943664951 E66.9 bmi 33.4 Diet: 1800 Calories Low Glycemic Index DietExerci se: Work up to 30 min 5x/week as tolerated Vaping 318598555 F17.29 0 Quitting smoking/[place] PING including medication s options discussed, risks and benefits discussed. Epilepsy 02116348 G40.90 9 she has epilepsyha s not had a seizure in about a year ago in march 2022needs a new neurologis tshe is on lamotrigin e and zonisamide . Adult heal th examination 674480219 Z00.00 doing fine overallwil l check labsdue for mammodue for colon cancer screeningw ill check labsAge appropriat e counseling including CV risk and cancer screening discussed Screening for malignant neoplasm of colon 825367797 Z12.11 Screening mammography 24 791055 Z12.31 Pain of le ft shoulder joint 0984710013 4323918 M25.512 used to be a massage therapistb [...] as an option Hepatitis C screening 41 3331378 Z11.59 Screening for malignant neoplasm of skin 596095759 Z12.83 Health Concerns Section Related Observation LastModified by Organization Detai ls LastModified Time None Recorded Concern Status LastModified by Organization Details LastModified Time None Recorded Advance Directives Directive None Recorded Payers Encounter Date Sequence Insurance Name Policy Number Policy Oglesby Covered Member ID Oglesby Member ID Guarantor Name 05/14/2023 1 [facility] [id number] Candi Berriost [id number] Candi Canales Notes Date Note Type Note Provider Name and Address Organization Details Recorded Time 05/14/2023 text/html here to compa kimballhas not had a pcp in [place] , [place] 4[place] she has epilepsyhas [...] was few years ago Carlos Sanches MD [address], [place], [address], [place] [facility] 05/14/2023 11:51:23 OBGyn Episode No OBEpisode recorded.
== END 2025-01-27 14:41 | disposition home or self-care (01) ==
LOC: HO.HMCC 13:50
PROVIDERS: PCP Nurse Practitioner Primary Care; Visit Provider Internal Medicine
DX: Z00.00 Encounter for general adult medical examination without abnormal findings (principal); E66.812 Obesity, class 2; Z68.36 Body mass index [BMI] 36.0-36.9, adult; E66.09 Other obesity due to excess calories; K20.0 Eosinophilic esophagitis; K90.0 Celiac disease; K21.9 Gastro-esophageal reflux disease without esophagitis; E55.9 Vitamin D deficiency, unspecified; R79.89 Other specified abnormal findings of blood chemistry; Z91.018 Allergy to other foods; K57.90 Diverticulosis of intestine, part unspecified, without perforation or abscess without bleeding

== ENCOUNTER → 2025-01-27 13:49 | Outpatient (BNVA) | payer OTHER, SELFPAY | PROVIDERS: PCP Nurse Practitioner Primary Care; Visit Provider Internal Medicine | DX: Z00.01 Encounter for general adult medical examination with abnormal findings (principal); K20.0 Eosinophilic esophagitis; K90.0 Celiac disease; K21.9 Gastro-esophageal reflux disease without esophagitis; E66.812 Obesity, class 2; E66.09 Other obesity due to excess calories; Z68.36 Body mass index [BMI] 36.0-36.9, adult; E55.9 Vitamin D deficiency, unspecified; R79.89 Other specified abnormal findings of blood chemistry; K57.90 Diverticulosis of intestine, part unspecified, without perforation or abscess without bleeding; Z91.018 Allergy to other foods | CPT/HCPCS: 99396 ==

== ENCOUNTER 2025-04-07 10:06 | Outpatient (AMB) | payer OTHER, SELFPAY ==
--- NOTE | 2025-04-07 10:08 | A.OFFVIS_ITS ---
Vital Signs 04/07/25 10:22 Height 5 ft 1 in Weight 188 lb BMI 35.5 BP 106/66 Blood Pressure Location Lt brachial Position Sitting Pulse 76 Pulse Source Pulse Oximeter Pulse Oximetry (%) 98 Oxygen Delivery Method Room Air Intake Visit Reasons: colo/egd vernon Intake Note: Established patient for GERD mgmt. S/P Arabella wIker Schmidt CC; C.O. GERD persistence per pt not taking pantoprazole as originally instructed. Pt has been concerned about possibility for interaction / adverse reaction per epilepsy medication. Pt also wishes to discuss possible hand welt butter referral / recommendation as well as AIANE results. Hatch Supervisor Required: No Accompanied by: Self / Same As Patient Allergies carbamazepine (From TEGRETOL) Allergy (Unknown, Verified 04/07/25 10:13) RASH tetracycline (TETRACYCLINE) Allergy (Unknown, Verified 04/07/25 10:13) HAIR LOSS HPI HPI colo/egd vernon: Details: Screen for colon cancer GERD (gastroesophageal reflux disease) Postprandial abdominal bloating Plan Patient denies any cardiac or respiratory symptoms.? Patient does admit that she has a history of epilepsy, last seizure in 2021. Patient reports that she takes her medications daily. Denies any issues with anesthesia in the past.? Denies any history of sleep apnea.? No history infectious diseases in the past or present.? Not on any anticoagulation therapy.? Family history of CRC. Patient reports that she has been having epigastric discomfort postprandially. Patient reports that it happens with almost every meal that she eats. Patient admits that this has been going on for sometimes. Will check for H pylori in the office today. Patient will start taking pantoprazole. Will treat empirically if positive. Patient will be sent for upper endoscopy to rule out esophagitis, gastritis, gastric or peptic ulcers, Balderas's.? Patient denies melena, hematochezia, unintentional weight loss or ribbon like stools.? Discussed at length the pre-procedure,? prep, diet & medications as well as what to expect prior, during and after the procedure.?? Stressed the importance of good bowel prep.? Recommended the use of Vaseline or Calmoseptine OTC & baby wipes with bowel movements to promote comfort.? ?Patient verbalizes understanding and agrees to plan of care.? She was given the opportunity to ask questions and all questions answered.? We will see her after the procedure.? Orders Orders H Pylori Breath Test Today K21.9 Lipase Today R10.9 Transglutaminase IgA Today R10.9 Transglutaminase Ab IgG Today R10.9 Medications New bisacodyl (Dulcolax (bisacodyl)) Start taking 2 tablet every night 7 days before the procedure and 1 day before procedure take 4 tablets at noon time followed by MiraLax prep 10 mg (2 x 5 mg) PO BEDTIME 16 tabs 0RF Z12.11 polyethylene glycol 3350 (Miralax) As directed by gastroenterology department at [facility] 238 grams PO ONCE 238 grams 0RF Z12.11 pantoprazole 20 mg PO DAILY 90 tabs 1RF UPPER ENDOSCOPY Consent: Indications for the procedure and potential complications of bleeding, perforation, reaction to medications and missed diagnosis were discussed with the patient and informed consent was obtained. Instrument: Olympus GIF H 190 mid size upper endoscope Monitoring: Vital signs and clinical assessment, continuous EKG monitoring, Pulse oximetry, Carbon Dioxide monitoring and blood pressure monitoring were done throughout the procedure. Procedure: The patient was placed in the left lateral decubitis position and pre-procedure medications were administered and a bite block was placed. The endoscope was inserted into the mouth and advanced under direct vision to the third part of duodenum. A careful inspection was made as the upper endoscope was withdrawn including a retroflexed examination of the proximal stomach; Findings and interventions are described below. Findings: Larynx: Normal Esophagus: Mildly tortuous esophagus without stricture or ring. GE junction at 36 cms. A single 1 cms healing erosion ar GE junction. No Balderas's. Empiric balloon dilation was performed with a 20 mm CRE balloon x 60 seconds Biopsies were obtained from proximal, mid and distal esophagus to check for EOE Stomach: Moderate diffuse gastric erythema - biopsies were obtained from the gastric body and antrum. Grade 2 flap valve on retroflexed examination of the cardia. Duodenum: Normal bulb and descending duodenum Biopsies were obtained from descending duodenum to check for celiac sprue Intervention: Biopsies as noted above COLONOSCOPY PROCEDURE NOTE Instrument: Olympus PCF H 190 L variable stiffness pediatric colonoscope Monitoring: Vital signs and clinical assessment, intermittent blood pressure monitoring, continuous EKG monitoring, Pulse oximetry and Carbon Dioxide monitoring were done throughout the procedure. Please see anesthesia flowsheet. Colon withdrawl time was 13 minutes. Procedure: The patient was placed in the left lateral decubitis position and pre-procedure medications were administered. After a digital rectal examination of the ano-rectum, the video colonoscope was inserted into the rectum and advanced through the colon to the cecum. The colonoscope was slowly withdrawn in a retrograde panoramic fashion and the colon mucosa was carefully examined including a retroflexed view of the rectum. Findings and interventions are described below. Procedure Difficulty: without difficulty Findings: Terminal Ileum: Not evaluated Cecum: A 2-3 mm diminutive appearing polyp - removed with a cold biopsy Ascending Colon: Normal Transverse Colon: Normal Descending Colon: Moderate diverticulosis Sigmoid Colon: A 3-4 mm diminutive appearing polyp - removed with a cold biopsy. Severe diverticulosis with luminal narrowing Rectum: Normal Ano-rectum: Small internal hemorrhoids Colon preparation: Good after some irrigation. Olmitz Bowel Preparation Scale Right colon; 2 Transverse colon: 2 Left colon; 2 (0 = Unprepared colon segment with mucosa not seen due to solid stool that cannot be cleared. 1 = Portion of mucosa of the colon segment seen, but other areas of the colon segment not well seen due to staining, residual stool and/or opaque liquid. 2 = Minor amount of residual staining, small fragments of stool and/or opaque liquid, but mucosa of colon segment seen well. 3 = Entire mucosa of colon segment seen well with no residual staining, small fragments of stool or opaque liquid) Impression and Post Procedure Diagnosis: Endoscopy Findings: ESOPHAGUS: A single 1 cms healing erosion ar GE junction. No Balderas's. Empiric balloon dilation was performed with a 20 mm CRE balloon x 60 seconds Biopsies were obtained from proximal, mid and distal esophagus to check for EOE STOMACH: Diffuse gastritis - biopsies obtained to check for Helicobacter pylori. DUODENUM: Normal - biopsied to check for EOE Colonoscopy Findings: Two small polyps were removed Moderate to severe diverticulosis seen in the left colon Small hemorrhoids on retroflexed exam. Plan: Repeat Colonoscopy in 5 years if polyps are adenomatous and due to a family hist ory of colon cancer A summary of above findings with relevant handouts were given to the patient in the discharge area. BIOPSIES SHOWED: A. Small bowel, biopsy: Duodenal mucosa within normal limits. B. Stomach, antrum, biopsy: Antral-type mucosa with mild chronic inactive inflammation; no Helicobacter organisms seen. C. Stomach, body, biopsy: Oxyntic mucosa with mild chronic inactive inflammation; no Helicobacter organisms seen. D. Esophagus, distal, biopsy: Squamous epithelium within normal limits; no inflammation seen. E. Esophagus, mid, biopsy: Squamous epithelium within normal limits; no inflammation seen. F. Esophagus, proximal, Squamous epithelium within normal limits; no inflammation seen. biopsy: G. Cecum, polypectomy: Colonic mucosa with prominent lymphoid aggregate. H. Colon, sigmoid, polypectomy: Hyperplastic mucosal polyp. Comment: Diagnostic features of celiac disease or eosinophilic esophagitis were not identified identified. Letter sent with biopsy results advising repeat colonoscopy in 5 years. Patient was placed on the colonoscopy recall list. TODAY'S VISIT Patient is here today for follow-up and to discuss upper endoscopy colonoscopy results. Patient denies any ill effects from the prep, anesthesia or procedure itself. Patient reports that before she had colonoscopy and upper endoscopy she was on a strict diet with protein shakes and recommendations made by bariatric services. However patient reports that she was unable to keep this diet as it was too hard for her. Since she changed her diet she started having worsening symptoms of epigastric pain, postprandial abdominal bloating and acid reflux. Patient did noticed that when she avoided gluten she felt better. Patient is also reporting that she is not moving her bowels well. Denies melena, hematochezia. Patient is not taking pantoprazole as she is afraid that it is common to interfere with her seizure medications. She was given script for 40 mg daily. Upper endoscopy showed normal esophagus, normal duodenum chronic inactive inflammation in her stomach. Biopsy results showed normal esophagus without esophagitis and normal duodenum. However in the comment it says that celiac disease and EOE is identify. I will send a message to pathologist to make an addendum to the report. [facility] Medical History (Updated 04/07/25 @ 11:03 by Cynthia Hernández RODENT EXTERMINATOR-) Anxiety Depression GERD (gastroesophageal reflux disease) Seizures DJD (degenerative joint disease) BMI 37.0-37.9, adult Obesity Surgical History History of bunionectomy Hx of tubal ligation Family History Mother Substance use disorder Sister Substance use disorder Maternal Grandfather Colon cancer Father FH: kidney cancer Social History Housing: Condominium Alcohol intake: current Alcohol intake frequency: holidays/special occasions only Patient Tobacco Use Status: Former Tobacco user e-Cigarette/Vaping Use: Never Used Second Hand Smoke Exposure: No service: No Current occupational status: employed 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 Current occupational exposures/hazards: No Cognitive needs: No Hearing needs: No Vision needs: Yes Female Reproductive History Menstrual Age of Menarche: 15 Physical Exam Vital Signs: Last Vital Signs Pulse 76 04/07/25 10:22 BP 106/66 04/07/25 10:22 Pulse Ox 98 04/07/25 10:22 Oxygen Delivery Method Room Air 04/07/25 10:22 BMI result Body Mass Index 35.5 Assessment & Plan Assessment & Plan (1) GERD (gastroesophageal reflux disease): Code(s): K21.9 - Gastro-esophageal reflux disease without esophagitis Category: Medical Qualifiers: Esophagitis presence: esophagitis presence not specified Qualified Code(s): K21.9 - Gastro-esophageal reflux disease without esophagitis (2) LFT elevation: Code(s): R79.89 - Other specified abnormal findings of blood chemistry Category: Medical (3) Diverticulosis: Code(s): K57.90 - Diverticulosis of intestine, part unspecified, without perforation or abscess without bleeding Category: Medical (4) Postprandial abdominal bloating: Code(s): R14.0 - Abdominal distension (gaseous) (5) Constipation: Code(s): K59.00 - Constipation, unspecified Qualifiers: Constipation type: slow transit constipation Qualified Code(s): K59.01 - Slow transit constipation Plan Patient will take pantoprazole 20 mg. Message sent to pathologist regarding report. Biopsy did not show celiac or eosinophilic esophagitis. Colonoscopy 2 benign polyps, however do o family history of CRC patient will need to repeat colonoscopy in 5 years. Discussed with patient avoiding dietary triggers and late night snacking. Staying upright for minimum 3 hours after meals discussed with patient. Patient will try to follow low FODMAP diet. List of food recommended as well as list of food to avoid given to patient. Patient is not taking vitamin-D supplement we will check the levels today as well as checking the transglutaminase. Mag oxide ordered to help patient with bowel movements, however if she continues to be constipated she will call us and we will send script for tru. Patient will follow-up in 3 months, sooner on as needed basis. She is agreeable to this plan and verbalizes understanding of instructions. She was given the opportunity to ask questions and all questions answered. Thank you for allowing me to participate in her care Orders: Orders Transglutaminase IgA 04/07/25 R10.9 - Unspecified abdominal pain Vitamin D 25-OH (D2 and D3) 04/07/25 E55.9 - Vitamin D deficiency, unspecified Transglutaminase Ab IgG 04/07/25 R10.9 - Unspecified abdominal pain Medications: New magnesium oxide 400 mg PO BEDTIME 30 caps 3RF K59.04 - Chronic idiopathic constipation pantoprazole 20 mg PO DAILY 30 tabs 3RF Coding Level of Care Code Est Pt Level 4 (91008) Complex EM visit Add On G2211 Diagnoses Gastroesophageal reflux disease, unspecified whether esophagitis present K21.9 Esophagitis presence: esophagitis presence not specified LFT elevation R79.89 Diverticulosis K57.90 Postprandial abdominal bloating R14.0 Slow transit constipation K59.01 Constipation type: slow transit constipation Time Spent (min) 40 Comment 25 minutes spent with patient and additional 10 minutes spent reviewing her records
[2025-04-07 10:22] VITALS: BP 106/66; PULSE 76; O2SAT 98; BMI 35.5
--- OUTSIDE RECORDS SUMMARY | 2025-04-07 11:37 | XMS_ITS | Encounter Summary ---
Author Organization [facility] Address [address] [facility] [place] [address] Care Team Providers Care Helicopter Officer Name Role Phone Samina Florez DO Primary Care Pro vider Unavailable [facility], Pcp Primary Care Provider Unavailabl e Reason for Visit * Reason Onset Date Comments nausea 10/26/2021 Encounter Details Date Type Department Care Team Description 10/26/2021 Telephone Adult Medicine [address] [place] [address] Samina Florez DO nausea Social History Tobacco Use Types Packs/Day Years Used Date Smoking Tobacco: Former Cigarettes Q uit: 03/01/2001 Smokeless Tobacco: Never Alcohol Use Standard Drinks/Week Comments Yes 0 (1 standard drink = 0.6 oz pur e alcohol) 3 glasses a week Sex Assigned at Date Recorded Female 10/01/2021 3:[address] documented as of this encounter Miscellaneous Notes * Telephone Encounter - Dania Richards R.N. - 10/26/2021 3:58 PM EST Pt has had nausea every day for weeks,. Does take seizure meds , unknown if pt has had any recent level checks . Had an appointment today for this and cancelled * Telephone Encounter - Tamarakeiko Blaine - 10/26/2021 1:32 PM EST Symptoms patient is presenting experiencing nausea every day, For ALL patients calling to schedule any appointment (routine, sick visit, follow up, consult, etc.) in the outpatient setting please ask the following questions: ?? Do you have fever of higher than 101, sore throat with difficulty swallowing or severe shortnessof breath? NO If YES to any of these above symptoms, send a message to triage and do not book. Red dot. If no, an audio or video visit should be booked. ?? Have you had close contact with someone with Coronavirus in the last 14 days? NO ?? Have you traveled abroad? NO ?? Have you traveled recently to another state outside of [place], [place], [place], [place], [place], [place], [place]? NO o If yes, did you quarantine for 14 days or have a negative covid test? NO If yes to any of the above, patient is not to be scheduled in office until after 14 day quarantine or negative covid test. If pain or injury related was it due to an accident at work or from a motor vehicle accident? NO If yes, gather 3rd libertarian insurance information Date of accident/Injury: \ How long has patient had these symptoms?: few weeks PCP: Samina Lal Payor: COMMERCIAL INSURANCE / Plan: COMMERCIAL INSURANCE / Product Type: OTHER documented in this encounter Plan of Treatment Not on file documented as of this encounter Visit Diagnoses Not on filedocumented in this encounter Care Teams Helicopter Officer Relationship Specialty Start Date End Date Samina Florez DO PCP - General Internal Medicine 02/24/15 03/31/23 [facility], Pcp PCP - General Internal Medicine 04/01/23 documented as of this encounter
== END 2025-04-07 11:11 | disposition home or self-care (01) ==
LOC: HO.HGI 10:07
PROVIDERS: PCP Internal Medicine; Visit Provider Nurse Practitioner Family
DX: K21.9 Gastro-esophageal reflux disease without esophagitis (principal); R79.89 Other specified abnormal findings of blood chemistry; K57.90 Diverticulosis of intestine, part unspecified, without perforation or abscess without bleeding; R14.0 Abdominal distension (gaseous); K59.01 Slow transit constipation
CPT/HCPCS: 99214

== ENCOUNTER → 2025-04-07 10:06 | Outpatient (BNVA) | payer OTHER, SELFPAY | PROVIDERS: PCP Internal Medicine; Visit Provider Nurse Practitioner Family | DX: K21.9 Gastro-esophageal reflux disease without esophagitis (principal); K57.90 Diverticulosis of intestine, part unspecified, without perforation or abscess without bleeding; R14.0 Abdominal distension (gaseous); K59.01 Slow transit constipation | CPT/HCPCS: 99212 ==

== ENCOUNTER 2025-09-27 09:44 | Outpatient (REF) | payer OTHER, SELFPAY ==
[2025-09-27 13:37] LABS: MANUAL DIFF FLAG NO
[2025-09-27 13:41] LABS: Hematocrit 41.2 % (37.0-47.0); Hemoglobin 13.4 g/dl (12.0-16.0); Imm Gran Abs Auto 0.02 X10*3/uL (0.00-0.03); Imm Gran Pct Auto 0.3 % (0.0-0.4); Lymphocytes Absolute Auto 1.8 X10*3/uL (1.2-4.9); Mean Corpuscular HGB Conc 32.5 g/dl (31.0-35.0); Mean Corpuscular Hemoglobin 28.9 pg (27.0-33.0); Mean Corpuscular Volume 88.8 fL (80.0-98.0); NRBC Abs Auto 0.000 X10*3/uL (0.0-0.012); NRBC Pct Auto 0.0 /100WBC (0.0-0.2); Platelet Count 302 X10*3/uL (160-400); Red Blood Count 4.64 X10*6/uL (4.20-5.50); White Blood Count 6.5 X10*3/uL (4.8-10.8)
[2025-09-27 13:52] LABS: Alanine Aminotransferase 26 U/L (0-31); Albumin Level 4.0 g/dL (3.5-5.0); Alkaline Phosphatase 124 U/L (39-117); Anion Gap 13 (12-20); Aspartate Amino Transferase 25 U/L (5-31); Blood Urea Nitrogen 12 mg/dL (9-16); Calcium 9.2 mg/dL (8.4-10.2); Carbon Dioxide 24 mmol/L (22-29); Chloride 110 mmol/L (96-108); Estimated Glomerular Filt Rate > 60; Potassium 4.0 mmol/L (3.3-5.1); Sodium 143 mmol/L (135-145); Total Protein 6.5 g/dL (6.5-8.0)
== END 2025-09-27 09:45 | disposition home or self-care (01) ==
LOC: HO.HMGCLDS 09:44
PROVIDERS: PCP Internal Medicine; Visit Provider Nurse Practitioner Family
DX: Z00.01 Encounter for general adult medical examination with abnormal findings (principal); K21.9 Gastro-esophageal reflux disease without esophagitis; E66.812 Obesity, class 2; Z68.36 Body mass index [BMI] 36.0-36.9, adult; E55.9 Vitamin D deficiency, unspecified; R79.89 Other specified abnormal findings of blood chemistry; Z91.018 Allergy to other foods; R10.9 Unspecified abdominal pain; K20.0 Eosinophilic esophagitis; K57.90 Diverticulosis of intestine, part unspecified, without perforation or abscess without bleeding; K59.01 Slow transit constipation; Z79.899 Other long term (current) drug therapy
CPT/HCPCS: 36415; 80053; 82306; 85025; 86364; 99212

== ENCOUNTER 2025-09-27 09:44 | Outpatient (AMB) | payer OTHER, SELFPAY ==
--- NOTE | 2025-09-27 09:52 | MHC.OFFVIS ---
Vital Signs 09/27/25 09:56 Height 5 ft 1 in Weight 189 lb BMI 35.7 BP 106/58 L Blood Pressure Location Rt brachial Position Sitting Pulse 76 Pulse Source Pulse Oximeter Pulse Oximetry (%) 99 Oxygen Delivery Method Room Air Intake Visit Reasons: R/S from 07/05. Intake Note: Established patient for GERD mgmt. Review response to Mag Oxide + Pantoprazole CC; C/O intermittent sx persistence with certain trigger foods. Pt identifies foods such as tomatos, corn, beans, etc. She reports her sx include generalized GI upset, intermittent constipation and diarrhea, and GERD. Generally, pt states that she has been adjusting well to the pantoprazole and mag oxide; she confirms she is still taking both medications. Registered Occupational Therapist Required: No Accompanied by: Self / Same As Patient Allergies carbamazepine (From TEGRETOL) Allergy (Unknown, Verified 09/27/25 10:01) RASH tetracycline (TETRACYCLINE) Allergy (Unknown, Verified 09/27/25 10:01) HAIR LOSS HPI HPI R/S from 07/05.: Details: LAST VISIT GERD (gastroesophageal reflux disease) LFT elevation Diverticulosis Postprandial abdominal bloating Constipation Plan Patient will take pantoprazole 20 mg. Message sent to pathologist regarding report. Biopsy did not show celiac or eosinophilic esophagitis. Colonoscopy 2 benign polyps, however do o family history of CRC patient will need to repeat colonoscopy in 5 years. Discussed with patient avoiding dietary triggers and late night snacking. Staying upright for minimum 3 hours after meals discussed with patient. Patient will try to follow low FODMAP diet. List of food recommended as well as list of food to avoid given to patient. Patient is not taking vitamin-D supplement we will check the levels today as well as checking the transglutaminase. Mag oxide ordered to help patient with bowel movements, however if she continues to be constipated she will call us and we will send script for senna. Patient will follow-up in 3 months, sooner on as needed basis. She is agreeable to this plan and verbalizes understanding of instructions. She was given the opportunity to ask questions and all questions answered. ? Thank you for allowing me to participate in her care Orders Transglutaminase IgA 04/07/25 R10.9 Vitamin D 25-OH (D2 and D3) 04/07/25 E55.9 Transglutaminase Ab IgG 04/07/25 R10.9 New magnesium oxide 400 mg PO BEDTIME 30 caps 3RF K59.04 pantoprazole 20 mg PO DAILY 30 tabs 3RF TODAY'S VISIT Patient is here today for follow-up. Patient forgot to get her blood work done. Currently she is taking pantoprazole in the morning and reports that symptoms of acid reflux is are suppressed for the most part. Patient is taking 20 mg dose. However she does report that when she eats tomatoes corn her acid gets worse. Patient states the definitely her symptoms are food triggers. Patient reports that she is constipated for the most part, however admits to occasional postprandial diarrhea lab to patient currently is not taking anything to help her bowels. Patient does not want a get use to taking something to help her move her bowels daily. Patient denies any melena, hematochezia, unintentional weight loss or ribbon like stools. Patient denies dyspepsia, dysphagia or odynophagia. Patient does admit that she has sweet tooth and eats a lot of sweets. [facility] Medical History Anxiety Depression GERD (gastroesophageal reflux disease) Seizures DJD (degenerative joint disease) BMI 37.0-37.9, adult Obesity Surgical History History of bunionectomy Hx of tubal ligation Family History Mother Substance use disorder Sister Substance use disorder Maternal Grandfather Colon cancer Father FH: kidney cancer Social History [facility]: [facility] Alcohol intake: current Alcohol intake frequency: holidays/special occasions only Patient Tobacco Use Status: Former Tobacco user e-Cigarette/Vaping Use: Never Used Second Hand Smoke Exposure: No service: No Current occupational status: employed 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 Current occupational exposures/hazards: No Cognitive needs: No Hearing needs: No Vision needs: Yes Female Reproductive History Menstrual Age of Menarche: 15 Review of Systems Const Denies weight gain and Denies weight loss ENT Reports no additional complaints, Denies dysphagia and Denies odynophagia Card Reports no additional complaints Resp Reports no additional complaints GI Reports abdominal pain (Epigastric), Denies belching, Denies melena, Reports bloating, Denies change in bowel habits, Reports constipation, Denies dysphagia, Denies excessive flatus, Denies dyspepsia, Reports heartburn, Denies diarrhea, Denies loose stools, Denies nausea, Denies odynophagia and Denies vomiting Reports no additional complaints Musc Reports no additional complaints Neuro Reports no additional complaints Psych Reports no additional complaints Endo Reports no additional complaints Physical Exam Vital Signs: Last Vital Signs Pulse 76 09/27/25 09:56 BP 106/58 L 09/27/25 09:56 Pulse Ox 99 09/27/25 09:56 Oxygen Delivery Method Room Air 09/27/25 09:56 BMI result Body Mass Index 35.7 Const General: healthy appearing and no acute distress Nutritional Appearance: obese Orientation/consciousness: patient oriented x3 Resp Effort & Inspection: normal respiratory effort, able to speak in complete sentences, no tracheal deviation and symmetric chest movement Auscultation: clear to auscultation bilaterally Cardio Rate: regular rate GI Inspection: Yes normal to inspection and No distended Palpation (GI): Soft to palpation, not firm, nontender and No hepatosplenomegaly present Auscultation: normal bowel sounds General: Yes no CVA tenderness Back/Spine/Pelvis Back: no CVA tenderness Skin General skin exam: elasticity normal, turgor normal and dry skin Neuro General: patient oriented x3 Psych Appearance: grossly normal Mental Status: mental status grossly normal Assessment & Plan Assessment & Plan (1) GERD (gastroesophageal reflux disease): Code(s): K21.9 - Gastro-esophageal reflux disease without esophagitis Category: Medical Qualifiers: Esophagitis presence: esophagitis presence not specified Qualified Code(s): K21.9 - Gastro-esophageal reflux disease without esophagitis (2) Eosinophilic esophagitis: Code(s): K20.0 - Eosinophilic esophagitis Category: Medical (3) LFT elevation: Code(s): R79.89 - Other specified abnormal findings of blood chemistry Category: Medical (4) Diverticulosis: Code(s): K57.90 - Diverticulosis of intestine, part unspecified, without perforation or abscess without bleeding Category: Medical (5) Constipation: Code(s): K59.00 - Constipation, unspecified Qualifiers: Constipation type: slow transit constipation Qualified Code(s): K59.01 - Slow transit constipation Plan Patient will continue 50 pantoprazole in the morning. Continue avoiding dietary triggers and late night snacking. Staying upright for minimum 3 hours after meals discussed with patient. Patient will try to take MiraLax daily or every other day to help with bowel movements. Patient was also recommended to try to use fiber with pre and probiotics. Increase fluid intake and activity to promote bowel motility. Patient will follow-up in the office in 6 months. Patient will call us if she will have any GI concerning symptoms. Patient is agreeable to current plan of care and verbalizes understanding of instructions. She was given the opportunity to ask questions and all questions answered. Thank you for allowing me to participate in her care Medications: New polyethylene glycol 3350 (Miralax) 17 grams PO DAILY 510 grams 2RF Coding Level of Care Code Est Pt Level 4 (79850) Add On Problem Visit Only Diagnoses Gastroesophageal reflux disease, unspecified whether esophagitis present K21.9 Esophagitis presence: esophagitis presence not specified Eosinophilic esophagitis K20.0 LFT elevation R79.89 Diverticulosis K57.90 Slow transit constipation K59.01 Constipation type: slow transit constipation Time Spent (min) 35 Comment 25 minutes spent with patient and additional 10 minutes spent reviewing her records
[2025-09-27 09:56] VITALS: BP 106/58; PULSE 76; O2SAT 99; BMI 35.7
== END 2025-09-27 10:21 | disposition home or self-care (01) ==
LOC: HO.HGI 09:45
PROVIDERS: PCP Internal Medicine; Visit Provider Nurse Practitioner Family
DX: K21.9 Gastro-esophageal reflux disease without esophagitis (principal); K20.0 Eosinophilic esophagitis; R79.89 Other specified abnormal findings of blood chemistry; K57.90 Diverticulosis of intestine, part unspecified, without perforation or abscess without bleeding; K59.01 Slow transit constipation
CPT/HCPCS: 99214